=== PATIENT | male | born 1955 ===

== ENCOUNTER 2017-02-09 15:28 | Emergency (ER) | payer MEDICARE ==
[2017-02-09 15:28] VITALS: BMI 34.2
[2017-02-09] MEDS ORDERED: Sodium Chloride 0.9% 500 ML IV ONE (16:43)
[2017-02-09] MEDS ORDERED: Piperacillin/Tazobact 3.375 GM in Sodium Chloride 100 ML IVPB STA (16:45)
[2017-02-09] MEDS ORDERED: Piperacillin/Tazobact 3.375 gm 100 ML IVPB ONE (17:07)
[2017-02-09] MEDS ORDERED: Morphine 4 MG/ML VIAL ONE (17:14)
[2017-02-09 17:17] LABS: BASO # 0.1 K/uL (0.0-0.2); BASO % 0.8 % (0.0-2.0); EOS # 0.4 K/uL (0.0-0.7); EOS % 4.2 % (0.0-4.0); HEMATOCRIT 42.7 % (35.0-51.0); LYMPH # 1.5 K/uL (1.0-4.3); LYMPH % 17.1 % (20.0-40.0); MEAN CELL VOLUME 88.7 fL (80.0-94.0); MEAN CORPUSCULAR HGB CONC 33.8 g/dL (33.0-37.0); MEAN PLATELET VOLUME 8.1 fL (7.2-11.7); MONO # 0.6 K/uL (0.0-0.8); MONO % 6.6 % (0.0-10.0); RED CELL DISTRIBUTION WIDTH 14.1 % (11.5-14.5)
[2017-02-09 17:23] VITALS: O2SAT 98
[2017-02-09 17:24] LABS: RBC URINE 3 /hpf (0-3); URINE BILIRUBIN NEGATIVE (NEGATIVE); URINE BLOOD 1+ (NEGATIVE); URINE COLOR Straw (YELLOW); URINE GLUCOSE (UA) NORMAL (Normal); URINE KETONE NEGATIVE (NEGATIVE); URINE LEUKOCYTE ESTERASE NEG Leu/uL (Negative); URINE PROTEIN NEGATIVE (NEGATIVE); URINE UROBILINOGEN NORMAL mg/dL (0.2-1.0); WBC URINE < 1 /hpf (0-5)
--- NOTE | 2017-02-09 18:02 | C.PDOC ---
History Of Present Illness 61 yo male w/PMHx of HTN, CAD come in for evaluation of left lower lip pain and swelling gradually developed for past 3-4 days. Pt sts, " developed small pimple on skin under my lip when tried to squeeze it and it got worse". Pt admits, was seen by PMD 2 days ago and received Rx: Valacyclovir, Ibuprofen without improvement. Otherwise, pt denies previous hx of cold sores, fever, chills, recent illness, headache, dizziness, recent dental work, drooling, dysphagia, dyspnea, trismus, earache, vertigo, denies CP, SOB, cough, wheezing or any other active complaints. Pt denies MARCELLUS inh use. Ambulate to Ed for evaluation, appears in pain. Time Seen by Provider: 02/09/17 15:54 Chief Complaint (Nursing): Abnormal Skin Integrity History Per: Patient Onset/Duration Of Symptoms: Gradual Current Symptoms Are (Timing): Worse Past Medical History Reviewed: Historical Data, Nursing Documentation, Vital Signs Vital Signs: Last Vital Signs Temp 97.9 F 02/09/17 17:30 Pulse 68 02/09/17 17:30 Resp 16 02/09/17 17:30 BP 122/76 02/09/17 17:30 Pulse Ox 98 02/09/17 19:18 - Medical History PMH: Back Problems, CAD ([place]), Gastritis, HTN, Sleep Apnea (doesnot use CPAP machine) Denies: Hypercholesterolemia, Chronic Kidney Disease Surgical History: Coronary Stent, Endoscopy - [facility] Procedures CLOSED ENDOSCOPIC BIOPSY OF LARGE INTESTINE (12/25/14) CORONAR ARTERIOGR-2 CATH (04/08/15) ESOPHAGOGASTRODUODENOSCOPY [EGD] W/CLOSED BIOPSY (01/01/15) INSERTION OF ONE VASCULAR STENT (04/08/15) INSRT OF DRUG-ELUTING CORON ARTERY STENTS(S) (04/08/15) LEFT HEART CARDIAC CATH (04/08/15) LT HEART ANGIOCARDIOGRAM (04/08/15) PERCUTANEOUS TRANSLUMINAL CORONARY ANGIOPLASTY [PTCA] (04/08/15) PROCEDURE ON SINGLE VESSEL (04/08/15) VACCINATION NEC (04/08/15) Family History: States: [place], CAD - Social History Hx Tobacco Use: No Hx Alcohol Use: No Hx Substance Use: No - Immunization History Hx Tetanus Toxoid Vaccination: No Hx Influenza Vaccination: No Hx Pneumococcal Vaccination: No Review Of Systems Except As Marked, All Systems Reviewed And Found Negative. Constitutional: Negative for: Fever, Chills Eyes: Negative for: Vision Change, Eyelid Inflammation, Redness ENT: Positive for: Mouth Pain, Mouth Swelling (lower lip). Negative for: Ear Pain, Ear Discharge, Throat Pain, Throat Swelling Respiratory: Negative for: Cough, Shortness of Breath, Wheezing Gastrointestinal: Negative for: Nausea, Vomiting, Abdominal Pain Musculoskeletal: Negative for: Neck Pain Skin: Positive for: Lesions (lower lip). Negative for: Rash Neurological: Negative for: Weakness, Numbness, Altered Mental Status, Headache , Dizziness Physical Exam - Physical Exam Appears: Well, Non-toxic, No Acute Distress Skin: Normal Color, Warm, Dry, No Rash Eye(s): bilateral: Normal Inspection Ear(s): Bilateral: Normal Nose: Normal, No Discharge Oral Mucosa: Moist Lips: Swelling (diffuse lower lip), Lesions (small lesion noted to lower lip vermilion border, tender, covered by bloody crust. No discharges noted.) Gingiva: Normal Appearing Throat: Normal, No Erythema, No Exudate, No Drooling Neck: Normal ROM, Trachea Midline, Supple Cardiovascular: Rhythm Regular Respiratory: No Stridor, No Wheezing Gastrointestinal/Abdominal: Normal Exam, Soft, No Tenderness Back: No CVA Tenderness Extremity: Normal ROM, No Pedal Edema, No Deformity Neurological/Psych: Oriented x3, Normal Speech ED Course And Treatment - Laboratory Results Result Diagrams: 02/09/17 17:10 02/09/17 17:10 Lab Interpretation: Normal O2 Sat by Pulse Oximetry: 98 Pulse Ox Interpretation: Normal Progress Note: Pt was OBS in ED for 3 hours and remained stable. Case discused , diagnostics review with ED attending and discharge with outpt f/ u recommend at this time. On re-eval, pt is afebrile, hemodynamicaly stable. Non-toxic. Tolerate Po well in ED. Pt reports, moderate improvement n apin and swelling after ED treatment. PulseOx 100% RA. Neck: (-) meningeal sign. ENT: exam c/w lower lip lesion with surrounding diffuse lip induration, r/o superimposed infection. Lungs: CTA B/L, BS equal B/L. ABd: benign. Neurologicaly intact. Results, clinidal findings review and discussed with pt and family. Advised to F/U with [facility] in 1-2 days without fail for re- eavluation. return if any new changes. Pt and family understand and agrees with discharges. Disposition Counseled Patient/Family Regarding: Studies Performed, Diagnosis, Need For Followup, Rx Given - Disposition Referrals: Roel Hancock MD [Medical Doctor] - Disposition Time: 18:02 Condition: STABLE Additional Instructions: WARM SALTY WATER COMPRESSES TO LIP AREA 3-4 TIME DAILY FOR 5 MINUTES TAKE MEDICATION PRESCRIBED FOLLOW UP WITH PMD OR ED IN 2 DAYS WITHOUT FAIL FOR RE-EVALUATION. RETURN TO ED AT ANY TIME IF ANY WORSENING OR NEW CHANGES. Prescriptions: Clindamycin [Cleocin] 300 mg PO Q6 #28 cap oxyCODONE/Acetaminophen [Percocet 5/325 mg Tab] 1 tab PO BID #7 tab Instructions: Cellulitis (ED) Print Language: CAMEROONIAN - Clinical Impression Clinical Impression: Lip abscess
[2017-02-09 18:03] LABS: CHLORIDE 100 mmol/L (98-107); SODIUM 137 mmol/L (132-148)
[2017-02-09 18:06] LABS: ALB/GLOB RATIO 1.4 (1.0-2.1); ALKALINE PHOSPHATASE 85 U/L (38-126); ALT/SGPT 20 U/L (21-72); AST/SGOT 30 U/L (17-59); BILIRUBIN,TOTAL 2.4 mg/dL (0.2-1.3); BLOOD UREA NITROGEN 15 mg/dL (9-20); CALCIUM 9.1 mg/dl (8.6-10.4); CARBON DIOXIDE 24 mmol/L (22-30); GFR AFRICAN-AMERICAN > 60; GLUCOSE,RANDOM 98 mg/dL (75-110); TOTAL PROTEIN 7.7 g/dL (6.3-8.3)
[2017-02-09 18:26] LABS: POTASSIUM 4.1 mmol/L (3.6-5.2)
[2017-02-09] MEDS ORDERED: Bacitracin 500 Units/gm Oint Foilpak UD ONE (18:27)
[2017-02-09] MEDS ORDERED: Oxycodone/Acetaminophen 5/325 mg Tab ONE (20:03)
[2017-02-09] MEDS ORDERED: Oxycodone/Acetaminophen 5/325 mg Tab PO STA (20:03)
[2017-02-09 20:32] VITALS: BP 124/72; PULSE 72; RESP 18; TEMP 98.1
[2017-02-09] MEDS ORDERED: Sodium Chloride 0.9% 1,000 ML ONE (20:45)
== END 2017-02-09 20:33 | disposition home or self-care (01) ==
LOC: C.ER 15:28
DX: K13.0 Diseases of lips (principal)
CPT/HCPCS: 80053; 81001; 85025; 87040; 96365; 96366; 96367; 96375; 99284; J2270; J2543; J2930; J7040; J7050

== ENCOUNTER 2017-04-18 10:45 | Inpatient (IN) | payer MEDICARE ==
[2017-04-18] MEDS ORDERED: Sodium Chloride 0.9% 1,000 ML ONE (10:56)
[2017-04-18] MEDS ORDERED: Sodium Chloride 0.9% 500 ML IV ONE (11:08)
[2017-04-18 11:19] VITALS: BMI 34.4
[2017-04-18 11:38] LABS: BASO % 0.1 % (0.0-2.0); HEMOGLOBIN 15.2 g/dL (12.0-18.0); LYMPH # 1.6 K/uL (1.0-4.3); LYMPH % 13.8 % (20.0-40.0); MEAN CELL VOLUME 88.5 fL (80.0-94.0); MEAN CORPUSCULAR HEMOGLOBIN 29.4 pg (27.0-31.0); MEAN CORPUSCULAR HGB CONC 33.3 g/dL (33.0-37.0); MEAN PLATELET VOLUME 8.8 fL (7.2-11.7); MONO # 0.7 K/uL (0.0-0.8); NEUT # 9.4 K/uL (1.8-7.0); NEUT % 80.1 % (50.0-75.0); RBC 5.18 Mil/uL (4.40-5.90); RED CELL DISTRIBUTION WIDTH 14.6 % (11.5-14.5); WHITE BLOOD COUNT 11.8 K/uL (4.8-10.8)
[2017-04-18 11:54] LABS: INR 1.1; PROTHROMBIN TIME 12.9 SECONDS (9.7-12.2)
--- NOTE | 2017-04-18 11:54 | C.PDOC ---
History Of Present Illness 61 year old male BIBA for evaluation of chest pain and palpitations x 1 hour. CP radiates to his left arm; associated with mild SOB. Patient took 4 ASA at home. He has h/o HTN, [place] with stent placemrnt 2 years ago (march 2015). Patient denies cough, fever, SOB or history of arrhythmias. Ticket [employer]or [employer] Usher is Dr. Muhammad. Time Seen by Provider: 04/18/17 10:53 Chief Complaint (Nursing): Chest Pain History Per: Patient, Family ( at bedside) History/Exam Limitations: no limitations Onset/Duration Of Symptoms: Hrs Current Symptoms Are (Timing): Still Present Quality: "Pain" Associated Symptoms: denies: Other (Cough, Fever) Modifying Factors: None Exacerbating Factors: None Alleviating Factors: None Past Medical History Reviewed: Historical Data, Nursing Documentation, Vital Signs Vital Signs: Last Vital Signs Temp 97.6 F 04/19/17 15:00 Pulse 88 04/19/17 15:00 Resp 20 04/19/17 15:00 BP 95/64 L 04/19/17 15:00 Pulse Ox 96 04/19/17 15:00 - Medical History PMH: Back Problems, CAD ([place]), Gastritis, HTN, Sleep Apnea (doesnot use CPAP machine) Surgical History: Coronary Stent, Endoscopy - [facility] Procedures CLOSED ENDOSCOPIC BIOPSY OF LARGE INTESTINE (12/25/14) CORONAR ARTERIOGR-2 CATH (04/08/15) ESOPHAGOGASTRODUODENOSCOPY [EGD] W/CLOSED BIOPSY (01/01/15) INSERTION OF ONE VASCULAR STENT (04/08/15) INSRT OF DRUG-ELUTING CORON ARTERY STENTS(S) (04/08/15) LEFT HEART CARDIAC CATH (04/08/15) LT HEART ANGIOCARDIOGRAM (04/08/15) PERCUTANEOUS TRANSLUMINAL CORONARY ANGIOPLASTY [PTCA] (04/08/15) PROCEDURE ON SINGLE VESSEL (04/08/15) VACCINATION NEC (04/08/15) Family History: States: [place], CAD - Social History Hx Tobacco Use: No Hx Alcohol Use: Yes Hx Substance Use: No - Immunization History Hx Tetanus Toxoid Vaccination: No Hx Influenza Vaccination: No Hx Pneumococcal Vaccination: No Review Of Systems Except As Marked, All Systems Reviewed And Found Negative. Constitutional: Negative for: Fever, Chills Cardiovascular: Positive for: Chest Pain, Palpitations Respiratory: Negative for: Cough, Shortness of Breath Gastrointestinal: Negative for: Nausea, Vomiting Musculoskeletal: Positive for: Arm Pain (Left, radiating from chest) Skin: Negative for: Rash Physical Exam - Physical Exam Appears: Non-toxic, Other (Uncomfortable appearing, speaking in full sentences) Skin: Normal Color, Warm, Dry, No Rash Head: Normacephalic Oral Mucosa: Moist Chest: No Tenderness Cardiovascular: Rhythm Irregular (Tachycardic and irregularly irregular) Respiratory: Normal Breath Sounds, No Rales, No Rhonchi, No Wheezing Gastrointestinal/Abdominal: Normal Exam, Bowel Sounds, Soft, No Tenderness Extremity: Normal ROM, No Pedal Edema, No Calf Tenderness Pulses: Left Dorsalis Pedis: Normal, Right Dorsalis Pedis: Normal Neurological/Psych: Oriented x3 ED Course And Treatment - Laboratory Results Result Diagrams: 04/19/17 07:16 04/19/17 07:16 ECG: Interpreted By Me, Viewed By Me (atrial fibrillation 163 bpm RVR, left axis deviatiob, no acute ST/T wave changes) ECG Rhythm: Atrial Fibrillation (With RVR) ECG Interpretation: Abnormal Rate From EC O2 Sat by Pulse Oximetry: 100 (Room air) Pulse Ox Interpretation: Normal - Radiology CXR: Interpreted by Me, Viewed By Me CXR Interpretation: Yes: No Acute Disease. No: Infiltrates Progress Note: Blood work, EKG, CXR ordered and reviewed. Patient given IV Cardizem 20mg x 2, and PO cardizem 30mg, PO tylenol for pain. Rate control achieved after IV and PO Cardizem, and chest pain also resolved when heart rate controlled . Patient given SC Lovenox due to new onset atrial fibrillation. Reevaluation Time: 13:00 Reassessment Condition: Improved (Patient resting comfortably, no current chest pain or palpitations.) - Physician Consult Information Physician Contacted: Pop Cao Outcome Of Conversation: Agrees with admission for new onset A fib with RVR, chest pain, r/o ACS with Dr. Muhammad for cardiology. Critical Care Time - Critical Care Note Total Time (in mins): 35 Documented critical care: time excludes all time spent performing seperately billable procedures. Disposition - Disposition Disposition: HOSPITALIZED Disposition Time: 13:16 Condition: STABLE - Clinical Impression Clinical Impression: New onset atrial fibrillation, Atrial fibrillation with RVR, Chest pain - Scribe Statement The provider has reviewed the documentation as recorded by the Scribe Jl Pope All medical record entries made by the Scribe were at my direction and personally dictated by me. I have reviewed the chart and agree that the record accurately reflects my personal performance of the history, physical exam, medical decision making, and the department course for this patient. I have also personally directed, reviewed, and agree with the discharge instructions and disposition. Decision To Admit - Pt Status Changed To: Hospital Disposition Of: Inpatient - Admit Certification Admit to Inpatient:: After my assessment, the patient will require hospitalization for at least two midnights. This is because of the severity of symptoms shown, intensity of services needed, and/or the medical risk in this patient being treated as an outpatient. - InPatient: Physician Admission Certification: I certify that this patient requires 2 or more midnights of care for the following reason:: see notes - . Bed Request Type: Telemetry Admitting Physician: Pop Cao Patient Diagnosis: Chest pain, New onset atrial fibrillation, Atrial fibrillation with RVR
[2017-04-18 12:01] LABS: ALBUMIN 4.5 g/dL (3.5-5.0)
[2017-04-18 12:04] LABS: AST/SGOT 31 U/L (17-59); GFR AFRICAN-AMERICAN > 60; GFR NON-AFRICAN AMERICAN > 60
[2017-04-18 12:05] LABS: ALB/GLOB RATIO 1.2 (1.0-2.1); ALT/SGPT 42 U/L (21-72); BLOOD UREA NITROGEN 14 mg/dL (9-20); CALCIUM 9.2 mg/dl (8.6-10.4)
[2017-04-18 12:13] LABS: B-TYPE NATRIURETIC PEPTIDE 57.8 pg/mL (0-900); CK-MB 1.09 ng/mL (0.0-3.38)
[2017-04-18] MEDS ORDERED: Enoxaparin 120 mg Syringe SC STA (13:11)
[2017-04-18] MEDS ORDERED: Enoxaparin 30 mg Syringe ONE (13:27)
[2017-04-18] MEDS ORDERED: Enoxaparin 80 mg Syringe ONE (13:27)
--- NOTE | 2017-04-18 15:23 | RAD ---
PROCEDURE: CHEST RADIOGRAPH, 1 VIEW HISTORY: cp COMPARISON: 04/07/2015 FINDINGS: LUNGS: Clear. PLEURA: No pneumothorax or pleural fluid seen. CARDIOVASCULAR: Normal. OSSEOUS STRUCTURES: No significant abnormalities. VISUALIZED UPPER ABDOMEN: Normal. OTHER FINDINGS: None. IMPRESSION: No active disease.
--- NOTE | 2017-04-18 15:36 | CP.PCM.HP ---
Past Patient History - Infectious Disease Hx of Infectious Diseases: None - Past Medical History & Family History Past Medical History?: No - Past Social History Smoking Status: Never Smoked - CARDIAC Hx Hypertension: Yes - PULMONARY Hx Sleep Apnea: Yes (doesnot use CPAP machine) - NEUROLOGICAL Hx Neurological Disorder: No - HEENT Hx HEENT Problems: Yes (Sinus Surgery) Hx Sinusitis: Yes - RENAL Hx Chronic Kidney Disease: No - ENDOCRINE/METABOLIC Hx Diabetes Mellitus Type 2: No - HEMATOLOGICAL/ONCOLOGICAL Hx Blood Disorders: No - INTEGUMENTARY Hx Dermatological Problems: No - MUSCULOSKELETAL/RHEUMATOLOGICAL Hx Musculoskeletal Disorders: Yes - GASTROINTESTINAL Hx Gastritis: Yes - GENITOURINARY/GYNECOLOGICAL Hx Genitourinary Disorders: No - PSYCHIATRIC Hx Substance Use: No - SURGICAL HISTORY Hx Coronary Stent: Yes - ANESTHESIA Hx Anesthesia: Yes Hx Anesthesia Reactions: No Hx Malignant Hyperthermia: No Meds Allergies/Adverse Reactions: Allergies Allergy/AdvReac Type Severity Reaction Status Date / Time No Known Allergies Allergy Verified 02/09/17 15:38 Results - Vital Signs Recent Vital Signs: Last Vital Signs Temp 98.0 F 04/18/17 14:40 Pulse 90 04/18/17 14:40 Resp 18 04/18/17 14:40 BP 115/78 04/18/17 14:40 Pulse Ox 98 04/18/17 14:40 - Labs Result Diagrams: 04/18/17 11:24 04/18/17 11:24 Assessment & Plan - Assessment and Plan (Free Text) Plan: repeat romix [address]kohan lagunas same coreg lisnorpil as pe rcardio
[2017-04-18] MEDS ORDERED: Enoxaparin 30 mg Syringe IVP ONE (15:37)
[2017-04-18] MEDS ORDERED: Enoxaparin 30 mg Syringe SC ONE (16:15)
[2017-04-18 17:22] LABS: BASO % 0.1 % (0.0-2.0); HEMOGLOBIN 15.4 g/dL (12.0-18.0); LYMPH # 1.5 K/uL (1.0-4.3); LYMPH % 12.1 % (20.0-40.0); MEAN CELL VOLUME 88.3 fL (80.0-94.0); MEAN CORPUSCULAR HEMOGLOBIN 29.4 pg (27.0-31.0); MEAN CORPUSCULAR HGB CONC 33.3 g/dL (33.0-37.0); MEAN PLATELET VOLUME 8.7 fL (7.2-11.7); MONO # 0.6 K/uL (0.0-0.8); MONO % 4.9 % (0.0-10.0); NEUT # 10.6 K/uL (1.8-7.0); NEUT % 82.9 % (50.0-75.0); RBC 5.22 Mil/uL (4.40-5.90); RED CELL DISTRIBUTION WIDTH 14.9 % (11.5-14.5); WHITE BLOOD COUNT 12.8 K/uL (4.8-10.8)
[2017-04-18 17:43] LABS: BLOOD UREA NITROGEN 12 mg/dL (9-20); GFR AFRICAN-AMERICAN > 60; GFR NON-AFRICAN AMERICAN > 60
[2017-04-18 17:44] LABS: CALCIUM 9.1 mg/dl (8.6-10.4)
[2017-04-18 17:56] LABS: CK-MB 2.44 ng/mL (0.0-3.38)
[2017-04-18] MEDS ORDERED: Oxycodone/Acetaminophen 5/325 mg Tab PO PRN (18:17)
[2017-04-19 01:39] LABS: CK-MB 1.78 ng/mL (0.0-3.38)
--- NOTE | 2017-04-19 02:33 | CP.PCM.PN ---
Subjective - Date & Time of Evaluation Date of Evaluation: 04/19/17 Time of Evaluation: 02:20 - Subjective Subjective: House resident paged due to increasing troponin level. Patient's was comfortable and in no acute distress. Denied chest pain or SOB. Vitals stable. Patient with history of Afib and NSTEMI in past. Was sent to [facility] and had stent placed, was 100% occluded in circumflex. Trop #1 negative, Trop #2 [phone] , Trop #[phone]. EKG showed A fib with hr [address] Dawkins, cardiology consulted. Lovenox 112mg SC BID therapeutic dose. Patient was given therapeutic dose in the ED around 1:00PM. He was given another dose now at 2:30 AM. Will repeat DA with am labs and closely monitor. Dayna Thomas PGY 1 Objective - Vital Signs/Intake and Output Vital Signs (last 24 hours): Temp Pulse Resp BP Pulse Ox 98.7 F 80 20 118/77 97 04/18/17 23:40 04/18/17 23:40 04/18/17 23:40 04/19/17 01:00 04/18/17 23:40 Intake and Output: 04/18/17 04/19/17 18:59 06:59 Intake Total 480 Balance 480 - Medications Medications: Current Medications Aspirin (Aspirin Chewable) 81 mg PO DAILY [facility] Last Admin: 04/18/17 16:41 Dose: 81 mg Aspirin (Ecotrin) 81 mg PO DAILY [facility] Clopidogrel Bisulfate (Plavix) 75 mg PO DAILY [facility] Diltiazem HCl (Cardizem) 60 mg PO Q6 [facility] Last Admin: 04/19/17 01:01 Dose: 60 mg Enoxaparin Sodium (Lovenox) 112 mg SC BID [facility] Losartan Potassium (Cozaar) 25 mg PO DAILY [facility] Metoprolol Tartrate (Lopressor) 25 mg PO DAILY [facility] Oxycodone/Acetaminophen (Percocet 5/325 Mg Tab) 1 tab PO BID PRN PRN Reason: Pain, moderate (4-7) Stop: 04/21/17 18:31 Pantoprazole Sodium (Protonix Ec Tab) 40 mg PO DAILY [facility] Rosuvastatin Calcium (Crestor) 5 mg PO HS [facility] Tramadol HCl (Ultram) 50 mg PO Q12 [facility] Last Admin: 04/18/17 22:10 Dose: 50 mg - Labs Labs: 04/18/17 17:14 04/18/17 17:14 PT 12.9 SECONDS (9.7-12.2) H 04/18/17 11:24 INR 1.1 04/18/17 11:24 APTT 28 SECONDS (21-34) 04/18/17 11:24
[2017-04-19] MEDS: Enoxaparin 120 mg Syringe SC SCH ×2 (02:43→13:41)
[2017-04-19 07:37] LABS: BASO % 0.1 % (0.0-2.0); HEMOGLOBIN 15.3 g/dL (12.0-18.0); LYMPH # 1.6 K/uL (1.0-4.3); LYMPH % 15.2 % (20.0-40.0); MEAN CELL VOLUME 88.1 fL (80.0-94.0); MEAN CORPUSCULAR HEMOGLOBIN 29.8 pg (27.0-31.0); MEAN CORPUSCULAR HGB CONC 33.8 g/dL (33.0-37.0); MEAN PLATELET VOLUME 8.4 fL (7.2-11.7); MONO # 0.5 K/uL (0.0-0.8); MONO % 4.7 % (0.0-10.0); NEUT # 8.4 K/uL (1.8-7.0); RBC 5.12 Mil/uL (4.40-5.90); RED CELL DISTRIBUTION WIDTH 14.4 % (11.5-14.5); WHITE BLOOD COUNT 10.5 K/uL (4.8-10.8)
[2017-04-19 07:49] LABS: ALBUMIN 3.9 g/dL (3.5-5.0)
[2017-04-19 07:52] LABS: ALB/GLOB RATIO 1.2 (1.0-2.1); AST/SGOT 26 U/L (17-59); GFR AFRICAN-AMERICAN > 60; GFR NON-AFRICAN AMERICAN > 60
[2017-04-19 07:53] LABS: ALT/SGPT 44 U/L (21-72); BLOOD UREA NITROGEN 15 mg/dL (9-20); MAGNESIUM 1.9 mg/dL (1.6-2.3)
[2017-04-19 08:03] LABS: CK-MB 1.44 ng/mL (0.0-3.38)
--- NOTE | 2017-04-19 09:52 | CP.PCM.PN ---
Subjective - Date & Time of Evaluation Date of Evaluation: 04/19/17 Time of Evaluation: 12:20 - Subjective Subjective: clinically same Objective - Vital Signs/Intake and Output Vital Signs (last 24 hours): Temp Pulse Resp BP Pulse Ox 98 F 75 20 118/83 97 04/19/17 04:00 04/19/17 04:00 04/19/17 04:00 04/19/17 06:24 04/18/17 23:40 Intake and Output: 04/19/17 04/19/17 06:59 18:59 Intake Total 680 Output Total 600 Balance 80 - Medications Medications: Current Medications Aspirin (Ecotrin) 81 mg PO DAILY [facility] Clopidogrel Bisulfate (Plavix) 75 mg PO DAILY [facility] Diltiazem HCl (Cardizem) 60 mg PO Q6 [facility] Last Admin: 04/19/17 06:27 Dose: 60 mg Enoxaparin Sodium (Lovenox) 112 mg SC Q12H [facility] Last Admin: 04/19/17 02:43 Dose: 112 mg Losartan Potassium (Cozaar) 25 mg PO DAILY [facility] Metoprolol Tartrate (Lopressor) 25 mg PO DAILY [facility] Oxycodone/Acetaminophen (Percocet 5/325 Mg Tab) 1 tab PO BID PRN PRN Reason: Pain, moderate (4-7) Stop: 04/21/17 18:31 Last Admin: 04/19/17 06:30 Dose: 1 tab Pantoprazole Sodium (Protonix Ec Tab) 40 mg PO DAILY [facility] Rosuvastatin Calcium (Crestor) 5 mg PO HS [facility] Tramadol HCl (Ultram) 50 mg PO Q12 [facility] Last Admin: 04/18/17 22:10 Dose: 50 mg - Labs Labs: 04/19/17 07:16 04/19/17 07:16 PT 12.9 SECONDS (9.7-12.2) H 04/18/17 11:24 INR 1.1 04/18/17 11:24 APTT 28 SECONDS (21-34) 04/18/17 11:24 - Constitutional Appears: Well - Head Exam Head Exam: ATRAUMATIC, NORMAL INSPECTION, NORMOCEPHALIC - Eye Exam Eye Exam: EOMI, Normal appearance, PERRL Pupil Exam: NORMAL ACCOMODATION, PERRL - ENT Exam ENT Exam: Mucous Membranes Moist, Normal Exam - Neck Exam Neck Exam: Full ROM, Normal Inspection. absent: Lymphadenopathy - Respiratory Exam Respiratory Exam: Decreased Breath Sounds - Cardiovascular Exam Cardiovascular Exam: REGULAR RHYTHM, +S1, +S2 - GI/Abdominal Exam GI & Abdominal Exam: Soft, Diminished Bowel Sounds - Rectal Exam Rectal Exam: Deferred
[2017-04-19] MEDS ORDERED: Enoxaparin 120 mg Syringe SC SCH (10:00)
[2017-04-19] MEDS ORDERED: Enoxaparin 100 mg Syringe SC SCH (10:00)
--- NOTE | 2017-04-19 10:05 | CARD ---
APPROVED REPORT EKG Measurement Heart [id number] <Conclusion> Atrial fibrillation with rapid ventricular response Abnormal ECG
[2017-04-19] MEDS: Pantoprazole 40 mg EC Tab PO SCH (10:10)
--- NOTE | 2017-04-19 10:58 | CARD ---
APPROVED REPORT EXAM: Two-dimensional and M-mode echocardiogram with Doppler and color Doppler. Other Information Quality : GoodRhythm : NSR INDICATION Atrial Fibrillation CORONARY STANT RISK FACTORS Hypertension 2D DIMENSIONS Aortic Root (2D)3.1 (2.0-3.7cm)LVDd3.7 (3.9-5.9cm) PWd1.0 (0.7-1.1cm)IVSs3.0 (0.8-1.2cm) LVDs2.1 (2.5-4.0cm)FS (%) 41.9 % LVEF (%)73.7 (>50%) M-Mode DIMENSIONS Left Atrium (MM)3.39 (2.5-4.0cm)IVSd1.62 (0.7-1.1cm) Aortic Root3.25 (2.2-3.7cm)LVDd4.65 (4.0-5.6cm) Aortic Cusp Exc.2.25 (1.5-2.0cm)PWd1.11 (0.7-1.1cm) FS (%) 27 %LVDs3.39 (2.0-3.8cm) LVEF (%)53 (>50%) Mitral Valve MV E Mejddiwv855.2cm/sE/A ratio0.0 TDI E/Lateral E'0.0E/Medial E'0.0 Tricuspid Valve TR Peak [id number]/[id number] Peak [id number] LEFT VENTRICLE The left ventricle is normal size. There is normal left ventricular wall thickness. The left ventricular function is normal. The left ventricular ejection fraction is within the normal range. No regional wall motion abnormalities noted. The left ventricular diastolic function is normal. No left ventricle thrombus noted on this study. There is no ventricular septal defect visualized. There is no left ventricular aneurysm. There is no mass noted in the left ventricle. RIGHT VENTRICLE The right ventricle is normal size. There is normal right ventricular wall thickness. The right ventricular systolic function is normal. ATRIA The left atrium size is normal. The right atrium size is normal. The interatrial septum is intact with no evidence for an atrial septal defect. AORTIC VALVE The aortic valve is normal in structure and function. No aortic regurgitation is present. There is no aortic valvular stenosis. There is no aortic valvular vegetation. MITRAL VALVE The mitral valve is normal in structure and function. There is no evidence of mitral valve prolapse. There is no mitral valve stenosis. There is no mitral valve regurgitation noted. TRICUSPID VALVE The tricuspid valve is normal in structure and function. There is mild tricuspid regurgitation. Right ventricular systolic pressure is estimated at less than 30 mmHg. There is no tricuspid valve prolapse or vegetation. There is no tricuspid valve stenosis. PULMONIC VALVE The pulmonary valve is normal in structure and function. There is no pulmonic valvular regurgitation. There is no pulmonic valvular stenosis. GREAT VESSELS The aortic root is normal in size. The ascending aorta is normal in size. The pulmonary artery is normal. The IVC is normal in size and collapses >50% with inspiration. PERICARDIAL EFFUSION The pericardium appears normal. There is no pleural effusion. <Conclusion> The left ventricular function is normal. The left ventricular ejection fraction is within the normal range. No regional wall motion abnormalities noted.
--- NOTE | 2017-04-19 11:56 | CP.PCM.CON ---
History of Present Illness - History of Present Illness History of Present Illness: Consult Note for Dr. Dawkins Reason for Consult: Palpitations 61 y/o M with PMH of HTN, GERD, GA, CAD with stent placement, and chronic back pain presented initially to the ED on 04/18/2017 for palpitations and chest pain. Pt arrived to the ED for chest pain that started 1 hour prior to arrival. Pt states the pain is radiating down his left arm. Pain was described as a pressure like pain. No medication was taken at home for pain. EKG on arrival to the ED showed A-fib with RVR with a rate of 160. Pt was also found to have positive troponins, which elevated on the second set, and decreased on the third. Overnight, pt was started on cardizem to help control rapid heart rate. Today, patient is doing well with no complaints at chest pain or shortness of breath at this time. PMH: HTN, GERD, GA, CAD, and chronic back pain PSH: Cardiac stent placement, Hernia Repair FMH: HTN, CAD Social Hx: Scooby tobacco or illicit drug use. Occasional alcohol use Allergies: NKDA Medication: See MAR Review of Systems - Constitutional Constitutional: absent: Fatigue, Fever - EENT Eyes: absent: Blurred Vision, Change in Vision - Cardiovascular Cardiovascular: Chest Pain, Palpitations - Respiratory Respiratory: absent: Cough, Dyspnea - Gastrointestinal Gastrointestinal: Abdominal Pain. absent: Diarrhea, Vomiting - Genitourinary Genitourinary: absent: Dysuria, Hematuria - Neurological Neurological: absent: Numbness, Tingling Past Patient History - Infectious Disease Hx of Infectious Diseases: None - Past Medical History & Family History Past Medical History?: Yes - Past Social History Smoking Status: Never Smoked - CARDIAC Hx Cardiac Disorders: Yes Hx Angina: Yes Hx Heart Attack: Yes Hx Hypercholesterolemia: Yes Hx Hypertension: Yes - PULMONARY Hx Respiratory Disorders: Yes Hx Sleep Apnea: Yes (doesnot use CPAP machine) - NEUROLOGICAL Hx Neurological Disorder: No - HEENT Hx HEENT Problems: Yes (Sinus Surgery) Hx Sinusitis: Yes Other/Comment: wear reading eyeglasses - RENAL Hx Chronic Kidney Disease: No - ENDOCRINE/METABOLIC Hx Endocrine Disorders: No - HEMATOLOGICAL/ONCOLOGICAL Hx Blood Disorders: No - INTEGUMENTARY Hx Dermatological Problems: No - MUSCULOSKELETAL/RHEUMATOLOGICAL Hx Falls: No - GASTROINTESTINAL Hx Gastrointestinal Disorders: Yes Hx Gastritis: Yes - GENITOURINARY/GYNECOLOGICAL Hx Genitourinary Disorders: No - PSYCHIATRIC Hx Substance Use: No - SURGICAL HISTORY Hx Surgeries: Yes Hx Coronary Stent: Yes (2 yrs ago) Hx Herniorrhaphy: Yes - ANESTHESIA Hx Anesthesia: Yes Hx Anesthesia Reactions: No Hx Malignant Hyperthermia: No Has any member of the family had a problem w/ anesthesia?: No Meds Allergies/Adverse Reactions: Allergies Allergy/AdvReac Type Severity Reaction Status Date / Time No Known Allergies Allergy Verified 02/09/17 15:38 - Medications Medications: Current Medications Aspirin (Ecotrin) 81 mg PO DAILY [facility] Last Admin: 04/19/17 10:12 Dose: 81 mg Clopidogrel Bisulfate (Plavix) 75 mg PO DAILY [facility] Last Admin: 04/19/17 10:10 Dose: 75 mg Diltiazem HCl (Cardizem) 60 mg PO Q6 [facility] Last Admin: 04/19/17 06:27 Dose: 60 mg Enoxaparin Sodium (Lovenox) 112 mg SC Q12H [facility] Last Admin: 04/19/17 02:43 Dose: 112 mg Losartan Potassium (Cozaar) 25 mg PO DAILY [facility] Last Admin: 04/19/17 10:10 Dose: 25 mg Metoprolol Tartrate (Lopressor) 25 mg PO DAILY [facility] Last Admin: 04/19/17 10:10 Dose: 25 mg Oxycodone/Acetaminophen (Percocet 5/325 Mg Tab) 1 tab PO BID PRN PRN Reason: Pain, moderate (4-7) Stop: 04/21/17 18:31 Last Admin: 04/19/17 06:30 Dose: 1 tab Pantoprazole Sodium (Protonix Ec Tab) 40 mg PO DAILY [facility] Last Admin: 04/19/17 10:10 Dose: 40 mg Rosuvastatin Calcium (Crestor) 5 mg PO HS [facility] Tramadol HCl (Ultram) 50 mg PO Q12 [facility] Last Admin: 04/19/17 10:10 Dose: 50 mg Physical Exam - Constitutional Appears: Well, No Acute Distress - Head Exam Head Exam: ATRAUMATIC, NORMAL INSPECTION, NORMOCEPHALIC - ENT Exam ENT Exam: Mucous Membranes Moist - Respiratory Exam Respiratory Exam: Clear to Auscultation Bilateral, NORMAL BREATHING PATTERN - Cardiovascular Exam Cardiovascular Exam: RRR, +S1, +S2 - GI/Abdominal Exam GI & Abdominal Exam: Normal Bowel Sounds, Soft. absent: Tenderness - Extremities Exam Extremities exam: Negative for: calf tenderness, pedal edema - Neurological Exam Neurological exam: Alert, Oriented x3 - Psychiatric Exam Psychiatric exam: Normal Affect, Normal Mood - Skin Skin Exam: Intact, Normal Color, Warm Results - Vital Signs Recent Vital Signs: Last Vital Signs Temp 98.2 F 04/19/17 07:45 Pulse 109 H 04/19/17 07:45 Resp 20 04/19/17 07:45 BP 110/65 04/19/17 10:10 Pulse Ox 96 04/19/17 07:45 - Labs Result Diagrams: 04/19/17 07:16 04/19/17 07:16 Labs: Laboratory Results - last 24 hr 04/18/17 04/18/17 04/19/17 17:14 17:14 01:14 WBC 12.8 H RBC 5.22 Hgb 15.4 Hct 46.1 MCV 88.3 MCH 29.4 MCHC 33.3 RDW 14.9 H Plt Count 165 MPV 8.7 Neut % (Auto) 82.9 H Lymph % (Auto) 12.1 L [place] % (Auto) 4.9 Eos % (Auto) 0.0 Baso % (Auto) 0.1 Neut # 10.6 H Lymph # 1.5 [place] # 0.6 Eos # 0.0 Baso # 0.0 Sodium 139 Potassium 4.0 Chloride 104 Carbon Dioxide 20 L Anion Gap 19 BUN 12 Creatinine 0.8 Est GFR ( Amer) > 60 Est GFR (Non-Af Amer) > 60 POC Glucose (mg/dL) Random Glucose 121 H Calcium 9.1 Phosphorus Magnesium Total Bilirubin AST ALT Alkaline Phosphatase Total Creatine Kinase 98 55 CK-MB (Mass) 2.44 1.78 Troponin I, Quant 0.1320 H* 0.2300 H* Total Protein Albumin Globulin Albumin/Globulin Ratio TSH 3rd Generation 04/19/17 04/19/17 04/19/17 06:51 07:16 07:16 WBC 10.5 RBC 5.12 Hgb 15.3 Hct 45.2 MCV 88.1 MCH 29.8 MCHC 33.8 RDW 14.4 Plt Count 163 MPV 8.4 Neut % (Auto) 80.0 H Lymph % (Auto) 15.2 L [place] % (Auto) 4.7 Eos % (Auto) 0.0 Baso % (Auto) 0.1 Neut # 8.4 H Lymph # 1.6 [place] # 0.5 Eos # 0.0 Baso # 0.0 Sodium 136 Potassium 3.9 Chloride 101 Carbon Dioxide 22 Anion Gap 17 BUN 15 Creatinine 0.8 Est GFR ( Amer) > 60 Est GFR (Non-Af Amer) > 60 POC Glucose (mg/dL) 118 H Random Glucose 128 H Calcium 9.0 Phosphorus 3.4 Magnesium 1.9 Total Bilirubin 1.7 H AST 26 ALT 44 Alkaline Phosphatase 82 Total Creatine Kinase 58 CK-MB (Mass) 1.44 Troponin I, Quant 0.1530 H* Total Protein 7.2 Albumin 3.9 Globulin 3.2 Albumin/Globulin Ratio 1.2 TSH 3rd Generation 1.13 04/19/17 11:24 WBC RBC Hgb Hct MCV MCH MCHC RDW Plt Count MPV Neut % (Auto) Lymph % (Auto) [place] % (Auto) Eos % (Auto) Baso % (Auto) Neut # Lymph # [place] # Eos # Baso # Sodium Potassium Chloride Carbon Dioxide Anion Gap BUN Creatinine Est GFR ( Amer) Est GFR (Non-Af Amer) POC Glucose (mg/dL) 225 H Random Glucose Calcium Phosphorus Magnesium Total Bilirubin AST ALT Alkaline Phosphatase Total Creatine Kinase CK-MB (Mass) Troponin I, Quant Total Protein Albumin Globulin Albumin/Globulin Ratio TSH 3rd Generation Assessment & Plan (1) Chest pain Assessment and Plan: Echocardiogram shows normal EF, no regional wall abnormalities, and normal LV function Troponins elevated, but downtrending at this time Pt will undergo cardiac catheterization today by Dr. Hazel Continue current medical regimen and will continue to follow Status: Acute
--- NOTE | 2017-04-19 22:48 | CP.PCM.CON ---
History of Present Illness - History of Present Illness History of Present Illness: Patient seen and evaluated Scheduled for cath tomorrow Past Patient History - Infectious Disease Hx of Infectious Diseases: None - Past Medical History & Family History Past Medical History?: Yes - Past Social History Smoking Status: Never Smoked - CARDIAC Hx Hypertension: Yes - PULMONARY Hx Sleep Apnea: Yes (doesnot use CPAP machine) - NEUROLOGICAL Hx Neurological Disorder: No - HEENT Hx HEENT Problems: Yes (Sinus Surgery) Hx Sinusitis: Yes Other/Comment: wear reading eyeglasses - RENAL Hx Chronic Kidney Disease: No - ENDOCRINE/METABOLIC Hx Endocrine Disorders: No - HEMATOLOGICAL/ONCOLOGICAL Hx Blood Disorders: No - INTEGUMENTARY Hx Dermatological Problems: No - MUSCULOSKELETAL/RHEUMATOLOGICAL Hx Falls: No - GASTROINTESTINAL Hx Gastritis: Yes - GENITOURINARY/GYNECOLOGICAL Hx Genitourinary Disorders: No - PSYCHIATRIC Hx Substance Use: No - SURGICAL HISTORY Hx Coronary Stent: Yes - ANESTHESIA Hx Anesthesia: Yes Hx Anesthesia Reactions: No Hx Malignant Hyperthermia: No Has any member of the family had a problem w/ anesthesia?: No Meds Allergies/Adverse Reactions: Allergies Allergy/AdvReac Type Severity Reaction Status Date / Time No Known Allergies Allergy Verified 02/09/17 15:38 - Medications Medications: Current Medications Aspirin (Ecotrin) 81 mg PO DAILY [facility] Last Admin: 04/19/17 10:12 Dose: 81 mg Clopidogrel Bisulfate (Plavix) 75 mg PO DAILY [facility] Last Admin: 04/19/17 10:10 Dose: 75 mg Diltiazem HCl (Cardizem) 60 mg PO Q6 [facility] Last Admin: 04/19/17 19:14 Dose: 60 mg Enoxaparin Sodium (Lovenox) 112 mg SC Q12H [facility] Last Admin: 04/19/17 13:41 Dose: 112 mg Losartan Potassium (Cozaar) 25 mg PO DAILY [facility] Last Admin: 04/19/17 10:10 Dose: 25 mg Metoprolol Tartrate (Lopressor) 25 mg PO DAILY [facility] Last Admin: 04/19/17 10:10 Dose: 25 mg Oxycodone/Acetaminophen (Percocet 5/325 Mg Tab) 1 tab PO BID PRN PRN Reason: Pain, moderate (4-7) Stop: 04/21/17 18:31 Last Admin: 04/19/17 06:30 Dose: 1 tab Pantoprazole Sodium (Protonix Ec Tab) 40 mg PO DAILY [facility] Last Admin: 04/19/17 10:10 Dose: 40 mg Rosuvastatin Calcium (Crestor) 5 mg PO HS [facility] Tramadol HCl (Ultram) 50 mg PO Q12 [facility] Last Admin: 04/19/17 10:10 Dose: 50 mg Results - Vital Signs Recent Vital Signs: Last Vital Signs Temp 97.6 F 04/19/17 15:00 Pulse 125 H 04/19/17 19:00 Resp 20 04/19/17 19:00 BP 110/75 04/19/17 19:00 Pulse Ox 100 04/19/17 18:48 - Labs Result Diagrams: 04/19/17 07:16 04/19/17 07:16 Labs: Laboratory Results - last 24 hr 04/19/17 04/19/17 04/19/17 01:14 06:51 07:16 WBC RBC Hgb Hct MCV MCH MCHC RDW Plt Count MPV Neut % (Auto) Lymph % (Auto) [place] % (Auto) Eos % (Auto) Baso % (Auto) Neut # Lymph # [place] # Eos # Baso # Sodium 136 Potassium 3.9 Chloride 101 Carbon Dioxide 22 Anion Gap 17 BUN 15 Creatinine 0.8 Est GFR ( Amer) > 60 Est GFR (Non-Af Amer) > 60 POC Glucose (mg/dL) 118 H Random Glucose 128 H Calcium 9.0 Phosphorus 3.4 Magnesium 1.9 Total Bilirubin 1.7 H AST 26 ALT 44 Alkaline Phosphatase 82 Total Creatine Kinase 55 58 CK-MB (Mass) 1.78 1.44 Troponin I, Quant 0.2300 H* 0.1530 H* Total Protein 7.2 Albumin 3.9 Globulin 3.2 Albumin/Globulin Ratio 1.2 TSH 3rd Generation 1.13 04/19/17 04/19/17 04/19/17 07:16 11:24 16:27 WBC 10.5 RBC 5.12 Hgb 15.3 Hct 45.2 MCV 88.1 MCH 29.8 MCHC 33.8 RDW 14.4 Plt Count 163 MPV 8.4 Neut % (Auto) 80.0 H Lymph % (Auto) 15.2 L [place] % (Auto) 4.7 Eos % (Auto) 0.0 Baso % (Auto) 0.1 Neut # 8.4 H Lymph # 1.6 [place] # 0.5 Eos # 0.0 Baso # 0.0 Sodium Potassium Chloride Carbon Dioxide Anion Gap BUN Creatinine Est GFR ( Amer) Est GFR (Non-Af Amer) POC Glucose (mg/dL) 225 H 114 H Random Glucose Calcium Phosphorus Magnesium Total Bilirubin AST ALT Alkaline Phosphatase Total Creatine Kinase CK-MB (Mass) Troponin I, Quant Total Protein Albumin Globulin Albumin/Globulin Ratio TSH 3rd Generation 04/19/17 21:33 WBC RBC Hgb Hct MCV MCH MCHC RDW Plt Count MPV Neut % (Auto) Lymph % (Auto) [place] % (Auto) Eos % (Auto) Baso % (Auto) Neut # Lymph # [place] # Eos # Baso # Sodium Potassium Chloride Carbon Dioxide Anion Gap BUN Creatinine Est GFR ( Amer) Est GFR (Non-Af Amer) POC Glucose (mg/dL) 141 H Random Glucose Calcium Phosphorus Magnesium Total Bilirubin AST ALT Alkaline Phosphatase Total Creatine Kinase CK-MB (Mass) Troponin I, Quant Total Protein Albumin Globulin Albumin/Globulin Ratio TSH 3rd Generation
[2017-04-20] MEDS: Enoxaparin 120 mg Syringe SC SCH (02:37)
[2017-04-20 07:09] LABS: BASO % 0.3 % (0.0-2.0); HEMOGLOBIN 16.1 g/dL (12.0-18.0); LYMPH # 1.8 K/uL (1.0-4.3); LYMPH % 15.6 % (20.0-40.0); MEAN CELL VOLUME 88.2 fL (80.0-94.0); MEAN CORPUSCULAR HEMOGLOBIN 29.6 pg (27.0-31.0); MEAN CORPUSCULAR HGB CONC 33.6 g/dL (33.0-37.0); MEAN PLATELET VOLUME 8.7 fL (7.2-11.7); MONO # 1.1 K/uL (0.0-0.8); MONO % 9.7 % (0.0-10.0); NEUT # 8.3 K/uL (1.8-7.0); NEUT % 74.4 % (50.0-75.0); RBC 5.42 Mil/uL (4.40-5.90); RED CELL DISTRIBUTION WIDTH 14.7 % (11.5-14.5); WHITE BLOOD COUNT 11.2 K/uL (4.8-10.8)
[2017-04-20 07:13] LABS: INR 1.3; PROTHROMBIN TIME 14.6 SECONDS (9.7-12.2)
[2017-04-20 07:17] LABS: ALBUMIN 3.8 g/dL (3.5-5.0)
[2017-04-20 07:20] LABS: ALB/GLOB RATIO 1.2 (1.0-2.1); ALT/SGPT 32 U/L (21-72); AST/SGOT 21 U/L (17-59); BLOOD UREA NITROGEN 21 mg/dL (9-20); GFR AFRICAN-AMERICAN > 60; GFR NON-AFRICAN AMERICAN > 60
[2017-04-20 07:21] LABS: CALCIUM 9.2 mg/dl (8.6-10.4); MAGNESIUM 2.1 mg/dL (1.6-2.3)
[2017-04-20 07:29] LABS: CK-MB 0.83 ng/mL (0.0-3.38)
--- NOTE | 2017-04-20 11:39 | CARD ---
APPROVED REPORT EKG Measurement Heart [id number] <Conclusion> Atrial fibrillation with rapid ventricular response Nonspecific ST abnormality Abnormal ECG
[2017-04-20] MEDS: Pantoprazole 40 mg EC Tab PO SCH (12:34)
[2017-04-20] MEDS ORDERED: Iohexol 350mg/ml 100 ML ONE (13:04)
[2017-04-20] MEDS ORDERED: Midazolam 2 MG/2 ML VIAL ONE (13:05)
--- NOTE | 2017-04-20 14:08 | CP.PCM.PN ---
Subjective - Date & Time of Evaluation Date of Evaluation: 04/20/17 Time of Evaluation: 14:06 - Subjective Subjective: Patient s/p Cath 1. L Main: Distal 20% 2. LAD: Distal 30% 3. L Cx: 100% occluded 4. RCA: Distal 80% 5. EF: 65%, EDP 18 For PCI of L Cx and RCA tomorrow at [place] 10.30am Continue ASA, Plavix D/C Lovenox today and tomorrow Objective - Vital Signs/Intake and Output Vital Signs (last 24 hours): Temp Pulse Resp BP Pulse Ox 98.1 F 115 H 20 119/66 95 04/20/17 08:15 04/20/17 08:15 04/20/17 08:15 04/20/17 09:09 04/20/17 08:15 Intake and Output: 04/20/17 04/20/17 06:59 18:59 Intake Total 50 Output Total 1300 Balance -1250 - Medications Medications: Current Medications Aspirin (Ecotrin) 81 mg PO DAILY [facility] Last Admin: 04/20/17 12:34 Dose: Not Given Clopidogrel Bisulfate (Plavix) 75 mg PO DAILY [facility] Last Admin: 04/20/17 12:34 Dose: Not Given Diltiazem HCl (Cardizem) 60 mg PO Q6 [facility] Last Admin: 04/20/17 12:34 Dose: Not Given Losartan Potassium (Cozaar) 25 mg PO DAILY [facility] Last Admin: 04/20/17 12:34 Dose: Not Given Metoprolol Tartrate (Lopressor) 25 mg PO DAILY [facility] Last Admin: 04/20/17 09:09 Dose: 25 mg Oxycodone/Acetaminophen (Percocet 5/325 Mg Tab) 1 tab PO BID PRN PRN Reason: Pain, moderate (4-7) Stop: 04/21/17 18:31 Last Admin: 04/19/17 06:30 Dose: 1 tab Pantoprazole Sodium (Protonix Ec Tab) 40 mg PO DAILY [facility] Last Admin: 04/20/17 12:34 Dose: Not Given Rosuvastatin Calcium (Crestor) 5 mg PO HS [facility] Last Admin: 04/19/17 22:52 Dose: 5 mg Tramadol HCl (Ultram) 50 mg PO Q12 [facility] Last Admin: 04/20/17 12:34 Dose: Not Given - Labs Labs: 04/20/17 07:02 04/20/17 07:02 PT 14.6 SECONDS (9.7-12.2) H 04/20/17 07:02 INR 1.3 04/20/17 07:02 APTT 28 SECONDS (21-34) 04/18/17 11:24
--- NOTE | 2017-04-20 14:43 | CP.PCM.PN ---
Subjective - Date & Time of Evaluation Date of Evaluation: 04/20/17 Time of Evaluation: 14:40 - Subjective Subjective: clinically same Objective - Vital Signs/Intake and Output Vital Signs (last 24 hours): Temp Pulse Resp BP Pulse Ox 98.1 F 115 H 20 119/66 95 04/20/17 08:15 04/20/17 08:15 04/20/17 08:15 04/20/17 09:09 04/20/17 08:15 Intake and Output: 04/20/17 04/20/17 06:59 18:59 Intake Total 50 Output Total 1300 Balance -1250 - Medications Medications: Current Medications Aspirin (Ecotrin) 81 mg PO DAILY [facility] Last Admin: 04/20/17 12:34 Dose: Not Given Clopidogrel Bisulfate (Plavix) 75 mg PO DAILY [facility] Last Admin: 04/20/17 12:34 Dose: Not Given Diltiazem HCl (Cardizem) 60 mg PO Q6 [facility] Last Admin: 04/20/17 12:34 Dose: Not Given Diltiazem HCl (Cardizem) 60 mg PO ONCE ONE Stop: 04/20/17 14:24 Losartan Potassium (Cozaar) 25 mg PO DAILY [facility] Last Admin: 04/20/17 12:34 Dose: Not Given Metoprolol Tartrate (Lopressor) 25 mg PO DAILY [facility] Last Admin: 04/20/17 09:09 Dose: 25 mg Oxycodone/Acetaminophen (Percocet 5/325 Mg Tab) 1 tab PO BID PRN PRN Reason: Pain, moderate (4-7) Stop: 04/21/17 18:31 Last Admin: 04/19/17 06:30 Dose: 1 tab Pantoprazole Sodium (Protonix Ec Tab) 40 mg PO DAILY [facility] Last Admin: 04/20/17 12:34 Dose: Not Given Rosuvastatin Calcium (Crestor) 5 mg PO HS [facility] Last Admin: 04/19/17 22:52 Dose: 5 mg Tramadol HCl (Ultram) 50 mg PO Q12 [facility] Last Admin: 04/20/17 12:34 Dose: Not Given - Labs Labs: 04/20/17 07:02 04/20/17 07:02 PT 14.6 SECONDS (9.7-12.2) H 04/20/17 07:02 INR 1.3 04/20/17 07:02 APTT 28 SECONDS (21-34) 04/18/17 11:24 - Constitutional Appears: Well - Head Exam Head Exam: ATRAUMATIC, NORMAL INSPECTION, NORMOCEPHALIC - Eye Exam Eye Exam: EOMI, Normal appearance, PERRL Pupil Exam: NORMAL ACCOMODATION, PERRL - ENT Exam ENT Exam: Mucous Membranes Moist, Normal Exam - Neck Exam Neck Exam: Full ROM, Normal Inspection. absent: Lymphadenopathy - Respiratory Exam Respiratory Exam: Decreased Breath Sounds - Cardiovascular Exam Cardiovascular Exam: REGULAR RHYTHM, +S1, +S2 - GI/Abdominal Exam GI & Abdominal Exam: Soft, Diminished Bowel Sounds - Rectal Exam Rectal Exam: Deferred
--- NOTE | 2017-04-20 16:24 | CP.PCM.CON ---
<Ly Blake - Last Filed: 04/20/17 15:55> History of Present Illness - History of Present Illness History of Present Illness: ICU Consult Note Reason for consult: s/p cardiac cath 61 y/o M with PMH of HTN, GERD, AR with stent placed 2014, CAD with stent placement, and chronic back pain presented initially to the ED on 04/18/2017 for palpitations and chest pain. Pt arrived to the ED for chest pain that started 1 hour prior to arrival. Pt states the pain is radiating down his left arm. Pain was described as a pressure like pain. No medication was taken at home for pain. EKG on arrival to the ED showed A-fib with RVR with a rate of 160. Pt was also found to have positive troponins, which elevated on the second set, and decreased on the third. Pt was started on cardizem to help control rapid heart rate. Patient had cardiac cath with Dr. Hazel on 04/20 showin. L Main: Distal 20% 2. LAD: Distal 30% 3. L Cx: 100% occluded 4. RCA: Distal 80% 5. EF: 65%, EDP 18 Patient for PCI of L Cx and RCA at [facility] on 04[place]. Patient reports feeling better today s/p cath. Denies fever, chills, headache, dizziness, chest pain, palpitations, SOB, cough, abd pain, nausea, vomiting, bladder complaints, pain/swelling in his legs b/l. Patient does report some constipation. PMH: HTN, GERD, AR, CAD, and chronic back pain PSurgHx: Cardiac stent placement, Hernia Repair FamHx: HTN, CAD Social Hx: Scooby tobacco or illicit drug use. Occasional alcohol use Allergies: NKDA Medication: See MAR ROS: Denies fever, chills, headache, dizziness, chest pain, palpitations, SOB, cough, abd pain, nausea, vomiting, bladder complaints, pain/swelling in his legs b/l. Patient does report some constipation. Review of Systems - Constitutional Constitutional: As Per HPI. absent: Chills, Fever - EENT Eyes: As Per HPI. absent: Pain Ears: As Per HPI. absent: Tinnitus, Dizziness Nose/Mouth/Throat: As Per HPI. absent: Sore Throat - Cardiovascular Cardiovascular: As Per HPI. absent: Chest Pain, Claudication, Dyspnea, Dyspnea on Exertion, Edema Additional comments: no pain at cardiac cath site- dressings c/d/i - Respiratory Respiratory: As Per HPI. absent: Cough, Dyspnea, Dyspnea on Exertion, Wheezing , Chest Congestion - Gastrointestinal Gastrointestinal: As Per HPI, Constipation. absent: Abdominal Pain, Diarrhea, Nausea, Vomiting - Genitourinary Genitourinary: As Per HPI. absent: Dysuria, Hematuria - Musculoskeletal Musculoskeletal: As Per HPI. absent: Numbness, Tingling - Integumentary Integumentary: As Per HPI. absent: Dry Skin, Rash - Neurological Neurological: As Per HPI. absent: Dizziness, Numbness, Tingling, Weakness - Psychiatric Psychiatric: As Per HPI. absent: Anxiety, Depression - Endocrine Endocrine: As Per HPI. absent: Palpitations, Polydipsia, Polyphagia, Polyuria - Hematologic/Lymphatic Hematologic: As Per HPI. absent: Easy Bleeding, Easy Bruising, Lymphadenopathy Past Patient History - Infectious Disease Hx of Infectious Diseases: None - Past Medical History & Family History Past Medical History?: Yes - Past Social History Smoking Status: Never Smoked - CARDIAC Hx Hypertension: Yes - PULMONARY Hx Sleep Apnea: Yes (doesnot use CPAP machine) - NEUROLOGICAL Hx Neurological Disorder: No - HEENT Hx HEENT Problems: Yes (Sinus Surgery) Hx Sinusitis: Yes Other/Comment: wear reading eyeglasses - RENAL Hx Chronic Kidney Disease: No - ENDOCRINE/METABOLIC Hx Endocrine Disorders: No - HEMATOLOGICAL/ONCOLOGICAL Hx Blood Disorders: No - INTEGUMENTARY Hx Dermatological Problems: No - MUSCULOSKELETAL/RHEUMATOLOGICAL Hx Falls: No - GASTROINTESTINAL Hx Gastritis: Yes - GENITOURINARY/GYNECOLOGICAL Hx Genitourinary Disorders: No - PSYCHIATRIC Hx Substance Use: No - SURGICAL HISTORY Hx Coronary Stent: Yes - ANESTHESIA Hx Anesthesia: Yes Hx Anesthesia Reactions: No Hx Malignant Hyperthermia: No Has any member of the family had a problem w/ anesthesia?: No Meds Allergies/Adverse Reactions: Allergies Allergy/AdvReac Type Severity Reaction Status Date / Time No Known Allergies Allergy Verified 02/09/17 15:38 - Medications Medications: Current Medications Aspirin (Ecotrin) 81 mg PO DAILY [facility] Last Admin: 04/20/17 12:34 Dose: Not Given Clopidogrel Bisulfate (Plavix) 75 mg PO DAILY [facility] Last Admin: 04/20/17 12:34 Dose: Not Given Diltiazem HCl (Cardizem) 60 mg PO Q6 [facility] Last Admin: 04/20/17 12:34 Dose: Not Given Losartan Potassium (Cozaar) 25 mg PO DAILY [facility] Last Admin: 04/20/17 12:34 Dose: Not Given Metoprolol Tartrate (Lopressor) 25 mg PO DAILY [facility] Last Admin: 04/20/17 09:09 Dose: 25 mg Oxycodone/Acetaminophen (Percocet 5/325 Mg Tab) 1 tab PO BID PRN PRN Reason: Pain, moderate (4-7) Stop: 04/21/17 18:31 Last Admin: 04/19/17 06:30 Dose: 1 tab Pantoprazole Sodium (Protonix Ec Tab) 40 mg PO DAILY [facility] Last Admin: 04/20/17 12:34 Dose: Not Given Rosuvastatin Calcium (Crestor) 5 mg PO HS [facility] Last Admin: 04/19/17 22:52 Dose: 5 mg Tramadol HCl (Ultram) 50 mg PO Q12 [facility] Last Admin: 04/20/17 12:34 Dose: Not Given Physical Exam - Constitutional Appears: Non-toxic, No Acute Distress - Head Exam Head Exam: ATRAUMATIC, NORMAL INSPECTION, NORMOCEPHALIC - Eye Exam Eye Exam: EOMI, Normal appearance, PERRL. absent: Conjunctival injection, Scleral icterus Pupil Exam: NORMAL ACCOMODATION - ENT Exam ENT Exam: Mucous Membranes Moist - Neck Exam Neck exam: Positive for: Full Rom, Normal Inspection - Respiratory Exam Respiratory Exam: Clear to Auscultation Bilateral, NORMAL BREATHING PATTERN. absent: Accessory Muscle Use, Rales, Rhonchi, Wheezes, Respiratory Distress - Cardiovascular Exam Cardiovascular Exam: Tachycardia, Irregular Rhythm, +S1, +S2. absent: Systolic Murmur - GI/Abdominal Exam GI & Abdominal Exam: Distended, Normal Bowel Sounds, Soft. absent: Tenderness - Extremities Exam Extremities exam: Negative for: pedal edema, tenderness Additional comments: dimished pedal pulses b/l cool extremities b/l negative edema b/l - Neurological Exam Neurological exam: Alert, Oriented x3 - Psychiatric Exam Psychiatric exam: Normal Affect, Normal Mood - Skin Skin Exam: Dry, Intact, Normal Color, Warm Results - Vital Signs Recent Vital Signs: Last Vital Signs Temp 98.0 F 04/20/17 15:16 Pulse 114 H 04/20/17 15:20 Resp 18 04/20/17 15:20 BP 126/92 H 04/20/17 15:08 Pulse Ox 98 04/20/17 15:20 - Labs Result Diagrams: 04/20/17 07:02 04/20/17 07:02 Labs: Laboratory Results - last 24 hr 04/19/17 04/19/17 04/20/17 16:27 21:33 06:46 WBC RBC Hgb Hct MCV MCH MCHC RDW Plt Count MPV Neut % (Auto) Lymph % (Auto) [place] % (Auto) Eos % (Auto) Baso % (Auto) Neut # Lymph # [place] # Eos # Baso # PT INR Sodium Potassium Chloride Carbon Dioxide Anion Gap BUN Creatinine Est GFR ( Amer) Est GFR (Non-Af Amer) POC Glucose (mg/dL) 114 H 141 H 133 H Random Glucose Calcium Phosphorus Magnesium Total Bilirubin AST ALT Alkaline Phosphatase Total Creatine Kinase CK-MB (Mass) Troponin I, Quant Total Protein Albumin Globulin Albumin/Globulin Ratio 04/20/17 04/20/17 04/20/17 07:02 07:02 07:02 WBC 11.2 H RBC 5.42 Hgb 16.1 Hct 47.8 MCV 88.2 MCH 29.6 MCHC 33.6 RDW 14.7 H Plt Count 174 MPV 8.7 Neut % (Auto) 74.4 Lymph % (Auto) 15.6 L [place] % (Auto) 9.7 Eos % (Auto) 0.0 Baso % (Auto) 0.3 Neut # 8.3 H Lymph # 1.8 [place] # 1.1 H Eos # 0.0 Baso # 0.0 PT 14.6 H INR 1.3 Sodium 138 Potassium 4.1 Chloride 106 Carbon Dioxide 21 L Anion Gap 15 BUN 21 H Creatinine 1.0 Est GFR ( Amer) > 60 Est GFR (Non-Af Amer) > 60 POC Glucose (mg/dL) Random Glucose 130 H Calcium 9.2 Phosphorus 3.5 Magnesium 2.1 Total Bilirubin 2.1 H AST 21 ALT 32 Alkaline Phosphatase 72 Total Creatine Kinase 76 CK-MB (Mass) 0.83 Troponin I, Quant 0.0930 Total Protein 6.9 Albumin 3.8 Globulin 3.1 Albumin/Globulin Ratio 1.2 04/20/17 11:24 WBC RBC Hgb Hct MCV MCH MCHC RDW Plt Count MPV Neut % (Auto) Lymph % (Auto) [place] % (Auto) Eos % (Auto) Baso % (Auto) Neut # Lymph # [place] # Eos # Baso # PT INR Sodium Potassium Chloride Carbon Dioxide Anion Gap BUN Creatinine Est GFR ( Amer) Est GFR (Non-Af Amer) POC Glucose (mg/dL) 117 H Random Glucose Calcium Phosphorus Magnesium Total Bilirubin AST ALT Alkaline Phosphatase Total Creatine Kinase CK-MB (Mass) Troponin I, Quant Total Protein Albumin Globulin Albumin/Globulin Ratio Assessment & Plan - Assessment and Plan (Free Text) Assessment: 61 y/o M with PMH of HTN, GERD, AR with stent placed 2014, CAD with stent placement, and chronic back pain presented initially to the ED on 04/18/2017 for palpitations and chest pain Plan: Neurology -AO x 3 -no acute issues Cardiovascular -troponin: 0.132--> 0.2300--> 0.1530--> 0.093 this AM -no acute ST elevations on EKG; Afib with RVR -s/p cardiac cath this AM with Dr Hazel 1. L Main: Distal 20% 2. LAD: Distal 30% 3. L Cx: 100% occluded 4. RCA: Distal 80% 5. EF: 65%, EDP 18 -patient for PCI of L Cx and RCA at [facility] tomorrow -Echocardiogram shows normal EF, no regional wall abnormalities, and normal LV function -Dr Hazel cardio following -Dr Dawkins cardio following Respiratory -no acute issues -breathing spontaneously on 2L NC GI -no acute issues Renal -no acute issues Heme -no acute issues MSK -no acute issues ID -WBC 11.2: likely reactionary -Monitor DVT ppx: Lovenox on hold; SCD c/i after cardiac cath GI ppx: Crestor 40mg po daily Code status: full code Case discussed with Dr. Magen Blake PGY2 <Jesse Us S - Last Filed: 04/20/17 18:22> Meds - Medications Medications: Current Medications Aspirin (Ecotrin) 81 mg PO DAILY [facility] Last Admin: 04/20/17 12:34 Dose: Not Given Clopidogrel Bisulfate (Plavix) 75 mg PO DAILY [facility] Last Admin: 04/20/17 12:34 Dose: Not Given Diltiazem HCl (Cardizem) 60 mg PO Q6 [facility] Last Admin: 04/20/17 17:07 Dose: 60 mg Losartan Potassium (Cozaar) 25 mg PO DAILY [facility] Last Admin: 04/20/17 12:34 Dose: Not Given Metoprolol Tartrate (Lopressor) 25 mg PO DAILY [facility] Last Admin: 04/20/17 09:09 Dose: 25 mg Oxycodone/Acetaminophen (Percocet 5/325 Mg Tab) 1 tab PO BID PRN PRN Reason: Pain, moderate (4-7) Stop: 04/21/17 18:31 Last Admin: 04/19/17 06:30 Dose: 1 tab Pantoprazole Sodium (Protonix Ec Tab) 40 mg PO DAILY [facility] Last Admin: 04/20/17 12:34 Dose: Not Given Rosuvastatin Calcium (Crestor) 5 mg PO HS [facility] Last Admin: 04/19/17 22:52 Dose: 5 mg Tramadol HCl (Ultram) 50 mg PO Q12 [facility] Last Admin: 04/20/17 12:34 Dose: Not Given Results - Vital Signs Recent Vital Signs: Last Vital Signs Temp 98.0 F 04/20/17 15:16 Pulse 105 H 04/20/17 17:00 Resp 15 04/20/17 17:00 BP 138/83 04/20/17 16:53 Pulse Ox 98 04/20/17 17:00 - Labs Result Diagrams: 04/20/17 07:02 04/20/17 07:02 Labs: Laboratory Results - last 24 hr 04/19/17 04/20/17 04/20/17 21:33 06:46 07:02 WBC 11.2 H RBC 5.42 Hgb 16.1 Hct 47.8 MCV 88.2 MCH 29.6 MCHC 33.6 RDW 14.7 H Plt Count 174 MPV 8.7 Neut % (Auto) 74.4 Lymph % (Auto) 15.6 L [place] % (Auto) 9.7 Eos % (Auto) 0.0 Baso % (Auto) 0.3 Neut # 8.3 H Lymph # 1.8 [place] # 1.1 H Eos # 0.0 Baso # 0.0 PT INR Sodium Potassium Chloride Carbon Dioxide Anion Gap BUN Creatinine Est GFR ( Amer) Est GFR (Non-Af Amer) POC Glucose (mg/dL) 141 H 133 H Random Glucose Calcium Phosphorus Magnesium Total Bilirubin AST ALT Alkaline Phosphatase Total Creatine Kinase CK-MB (Mass) Troponin I, Quant Total Protein Albumin Globulin Albumin/Globulin Ratio 04/20/17 04/20/17 04/20/17 07:02 07:02 11:24 WBC RBC Hgb Hct MCV MCH MCHC RDW Plt Count MPV Neut % (Auto) Lymph % (Auto) [place] % (Auto) Eos % (Auto) Baso % (Auto) Neut # Lymph # [place] # Eos # Baso # PT 14.6 H INR 1.3 Sodium 138 Potassium 4.1 Chloride 106 Carbon Dioxide 21 L Anion Gap 15 BUN 21 H Creatinine 1.0 Est GFR ( Amer) > 60 Est GFR (Non-Af Amer) > 60 POC Glucose (mg/dL) 117 H Random Glucose 130 H Calcium 9.2 Phosphorus 3.5 Magnesium 2.1 Total Bilirubin 2.1 H AST 21 ALT 32 Alkaline Phosphatase 72 Total Creatine Kinase 76 CK-MB (Mass) 0.83 Troponin I, Quant 0.0930 Total Protein 6.9 Albumin 3.8 Globulin 3.1 Albumin/Globulin Ratio 1.2 Attending/Attestation - Attestation I have personally seen and examined this patient.: Yes I have fully participated in the care of the patient.: Yes I have reviewed all pertinent clinical information: Yes Notes (Text): 04/20/17 18:21 pt seen and examined S/P cardiac cath L Main: Distal 20% 2. LAD: Distal 30% 3. L Cx: 100% occluded 4. RCA: Distal 80% 5. EF: 65%, EDP 18 Patient for PCI of L Cx and RCA at [facility] on 04/21.
--- NOTE | 2017-04-20 16:28 | CP.PCM.PN ---
Subjective - Date & Time of Evaluation Date of Evaluation: 04/20/17 Time of Evaluation: 16:25 - Subjective Subjective: Progress Note for Dr. Dawkins Pt seen and examined at bedside. Pt doing well overnight with no acute events as per nursing. No complaints this morning. Pt is scheduled for cardiac catheterization today. Denies CP, SOB, N/V/D. Objective - Vital Signs/Intake and Output Vital Signs (last 24 hours): Temp Pulse Resp BP Pulse Ox 98.0 F 114 H 18 126/92 H 98 04/20/17 15:16 04/20/17 15:20 04/20/17 15:20 04/20/17 15:08 04/20/17 15:20 Intake and Output: 04/20/17 04/20/17 06:59 18:59 Intake Total 50 125 Output Total 1300 75 Balance -1250 50 - Medications Medications: Current Medications Aspirin (Ecotrin) 81 mg PO DAILY [facility] Last Admin: 04/20/17 12:34 Dose: Not Given Clopidogrel Bisulfate (Plavix) 75 mg PO DAILY [facility] Last Admin: 04/20/17 12:34 Dose: Not Given Diltiazem HCl (Cardizem) 60 mg PO Q6 [facility] Last Admin: 04/20/17 12:34 Dose: Not Given Losartan Potassium (Cozaar) 25 mg PO DAILY [facility] Last Admin: 04/20/17 12:34 Dose: Not Given Metoprolol Tartrate (Lopressor) 25 mg PO DAILY [facility] Last Admin: 04/20/17 09:09 Dose: 25 mg Oxycodone/Acetaminophen (Percocet 5/325 Mg Tab) 1 tab PO BID PRN PRN Reason: Pain, moderate (4-7) Stop: 04/21/17 18:31 Last Admin: 04/19/17 06:30 Dose: 1 tab Pantoprazole Sodium (Protonix Ec Tab) 40 mg PO DAILY [facility] Last Admin: 04/20/17 12:34 Dose: Not Given Rosuvastatin Calcium (Crestor) 5 mg PO HS [facility] Last Admin: 04/19/17 22:52 Dose: 5 mg Tramadol HCl (Ultram) 50 mg PO Q12 [facility] Last Admin: 04/20/17 12:34 Dose: Not Given - Labs Labs: 04/20/17 07:02 04/20/17 07:02 PT 14.6 SECONDS (9.7-12.2) H 04/20/17 07:02 INR 1.3 04/20/17 07:02 APTT 28 SECONDS (21-34) 04/18/17 11:24 - Constitutional Appears: Well, No Acute Distress - Head Exam Head Exam: ATRAUMATIC, NORMAL INSPECTION, NORMOCEPHALIC - Respiratory Exam Respiratory Exam: Clear to Ausculation Bilateral, NORMAL BREATHING PATTERN - Cardiovascular Exam Cardiovascular Exam: RRR, +S1, +S2 - GI/Abdominal Exam GI & Abdominal Exam: Soft, Normal Bowel Sounds. absent: Tenderness - Extremities Exam Extremities Exam: Normal Inspection. absent: Calf Tenderness, Pedal Edema - Neurological Exam Neurological Exam: Alert, Awake, Oriented x3 - Skin Skin Exam: Intact, Normal Color, Warm Assessment and Plan (1) Chest pain Assessment & Plan: Pt underwent cardiac cath today Cath showed total occlusion of the circumflex artery and 80% occlusion of the distal RCA Pt will be transferred to [facility] tomorrow for stent placement Lovenox stopped at this time Status: Acute
[2017-04-21 06:21] LABS: BASO % 0.3 % (0.0-2.0); EOS % 0.1 % (0.0-4.0); HEMOGLOBIN 16.4 g/dL (12.0-18.0); LYMPH # 1.4 K/uL (1.0-4.3); LYMPH % 13.5 % (20.0-40.0); MEAN CELL VOLUME 87.8 fL (80.0-94.0); MEAN CORPUSCULAR HEMOGLOBIN 29.9 pg (27.0-31.0); MEAN CORPUSCULAR HGB CONC 34.1 g/dL (33.0-37.0); MEAN PLATELET VOLUME 8.6 fL (7.2-11.7); MONO # 0.6 K/uL (0.0-0.8); MONO % 6.2 % (0.0-10.0); NEUT % 79.9 % (50.0-75.0); NRBC % 0.1 % (0.0-2.0); RBC 5.49 Mil/uL (4.40-5.90); RED CELL DISTRIBUTION WIDTH 14.8 % (11.5-14.5)
[2017-04-21 06:31] LABS: ALBUMIN 3.7 g/dL (3.5-5.0)
[2017-04-21 06:33] LABS: ALB/GLOB RATIO 1.2 (1.0-2.1)
[2017-04-21 06:35] LABS: AST/SGOT 30 U/L (17-59); BLOOD UREA NITROGEN 24 mg/dL (9-20); GFR AFRICAN-AMERICAN > 60; GFR NON-AFRICAN AMERICAN > 60
[2017-04-21 06:36] LABS: ALT/SGPT 37 U/L (21-72); CALCIUM 8.9 mg/dl (8.6-10.4); MAGNESIUM 2.3 mg/dL (1.6-2.3)
--- NOTE | 2017-04-21 07:39 | CP.CCUPN ---
CCU Subjective - Physician Review Subjective (Free Text): 04/21/17 16:11 Patient seen and examined at bedside s/p insertion of VAUGHN of RCA today 04/21. Patient resting comfortably in bed. No pain at site and dressings c/d/i. Denied fever, chills, headache, dizziness, chest pain, palpitations, SOB, cough, abd pain, nausea, vomiting, bladder complaints, pain/swelling in his legs b/l. CCU Objective - Vital Signs / Intake & Output Vital Signs (Last 4 hours): Vital Signs Temp Pulse Resp BP Pulse Ox 04/21/17 07:08 111 H 12 132/94 H 96 04/21/17 07:00 127 H 20 95 04/21/17 06:54 115 H 14 136/85 96 04/21/17 06:38 120 H 10 L 136/80 94 L 04/21/17 06:30 121 H 13 95 04/21/17 06:23 116 H 16 127/83 95 04/21/17 06:20 142 H 14 95 04/21/17 06:10 126 H 12 96 04/21/17 06:08 121 H 15 119/85 97 04/21/17 06:00 103 H 13 04/21/17 05:53 135 H 16 109/82 99 04/21/17 05:50 127 H 13 98 04/21/17 05:40 114 H 16 94 L 04/21/17 05:38 113 H 11 L 126/75 97 04/21/17 05:30 118 H 12 95 04/21/17 05:24 136 H 12 121/67 95 04/21/17 05:20 108 H 16 95 04/21/17 05:10 118 H 11 L 96 04/21/17 05:00 118 H 12 96 04/21/17 04:53 116 H 11 L 116/80 97 04/21/17 04:50 112 H 15 95 04/21/17 04:40 112 H 15 95 04/21/17 04:38 123 H 16 119/78 95 04/21/17 04:30 109 H 15 95 04/21/17 04:20 126 H 17 98 04/21/17 04:10 122 H 18 95 04/21/17 04:08 116 H 19 111/80 95 04/21/17 04:00 98 F 116 H 14 97 04/21/17 03:55 128 H 18 125/81 93 L 04/21/17 03:50 122 H 14 96 04/21/17 03:40 136 H 18 96 Intake and Output (Last 8hrs): Intake & Output 04/20/17 04/21/17 04/21/17 22:59 06:59 14:59 Intake Total 945 150 Output Total 1475 550 400 Balance -530 -400 -400 Weight 251 lb 5.231 oz Intake: Oral 945 150 Output: Urine 1475 550 400 Urine, Voided 1475 550 400 - Physical Exam Head: Positive for: Atraumatic, Normocephalic Pupils: Positive for: PERRL Extroacular Muscles: Positive for: EOMI Conjunctiva: Positive for: Normal. Negative for: Injected, Icteric Mouth: Positive for: Moist Mucous Membranes Neck: Positive for: Normal Range of Motion Respiratory/Chest: Positive for: Clear to Auscultation, Good Air Exchange. Negative for: Respiratory Distress, Accessory Muscle Use, Wheezes, Rales, Rhonchi Cardiovascular: Positive for: Normal S1, S2, Irregular Rhythm, Tachycardic. Negative for: Regular Rate and Rhythm Abdomen: Positive for: Normal Bowel Sounds. Negative for: Tenderness, Distention Upper Extremity: Positive for: Normal Inspection, NORMAL PULSES. Negative for: Cyanosis, Edema Lower Extremity: Positive for: Normal Inspection, Other (diminshed pulses b/l). Negative for: Edema Neurological: Positive for: CN II-XII Intact, Speech Normal Skin: Positive for: Warm, Dry, Normal Color Psychiatric: Positive for: Alert, Oriented x 3, Normal Insight, Normal Concentration - Medications Active Medications: Active Medications Generic Name Dose Route Start Last Admin Trade Name Freq PRN Reason Stop Dose Admin Aspirin 81 mg 04/19/17 10:00 04/20/17 12:34 Ecotrin PO Not Given DAILY [facility] Clopidogrel Bisulfate 75 mg 04/19/17 10:00 04/20/17 12:34 Plavix PO Not Given DAILY [facility] Diltiazem HCl 60 mg 04/19/17 01:00 04/21/17 05:41 Cardizem PO 60 mg Q6 NELY Administration Losartan Potassium 25 mg 04/19/17 10:00 04/20/17 12:34 Cozaar PO Not Given DAILY [facility] Metoprolol Tartrate 25 mg 04/19/17 10:00 04/20/17 09:09 Lopressor PO 25 mg DAILY NELY Administration Oxycodone/Acetaminophen 1 tab 04/18/17 18:17 04/19/17 06:30 Percocet 5/325 Mg Tab PO 04/21/17 18:31 1 tab BID PRN Administration Pain, moderate (4-7) Pantoprazole Sodium 40 mg 04/19/17 10:00 04/20/17 12:34 Protonix Ec Tab PO Not Given DAILY [facility] Rosuvastatin Calcium 5 mg 04/19/17 22:00 04/20/17 21:35 Crestor PO 5 mg HS NELY Administration Tramadol HCl 50 mg 04/18/17 22:00 04/20/17 21:35 Ultram PO 50 mg Q12 NELY Administration - Patient Studies Lab Studies: Lab Studies 04/21/17 04/21/17 04/20/17 Range/Units 06:03 06:03 11:24 WBC 10.0 (4.8-10.8) K/uL RBC 5.49 (4.40-5.90) Mil/uL Hgb 16.4 (12.0-18.0) g/dL Hct 48.2 (35.0-51.0) % MCV 87.8 (80.0-94.0) fL MCH 29.9 (27.0-31.0) pg MCHC 34.1 (33.0-37.0) g/dL RDW 14.8 H (11.5-14.5) % Plt Count 169 (130-400) K/uL MPV 8.6 (7.2-11.7) fL Neut % (Auto) 79.9 H (50.0-75.0) % Lymph % (Auto) 13.5 L (20.0-40.0) % Mingo % (Auto) 6.2 (0.0-10.0) % Eos % (Auto) 0.1 (0.0-4.0) % Baso % (Auto) 0.3 (0.0-2.0) % Neut # 8.0 H (1.8-7.0) K/uL Lymph # 1.4 (1.0-4.3) K/uL Mingo # 0.6 (0.0-0.8) K/uL Eos # 0.0 (0.0-0.7) K/uL Baso # 0.0 (0.0-0.2) K/uL Sodium 136 (132-148) mmol/L Potassium 4.2 (3.6-5.2) mmol/L Chloride 102 (98-107) mmol/L Carbon Dioxide 22 (22-30) mmol/L Anion Gap 16 (10-20) BUN 24 H (9-20) mg/dL Creatinine 0.9 (0.8-1.5) MG/DL Est GFR ( Amer) > 60 Est GFR (Non-Af Amer) > 60 POC Glucose (mg/dL) 117 H (65-110) mg/dL Random Glucose 126 H (75-110) mg/dL Calcium 8.9 (8.6-10.4) mg/dl Phosphorus 3.8 (2.5-4.5) mg/dL Magnesium 2.3 (1.6-2.3) mg/dL Total Bilirubin 2.4 H (0.2-1.3) mg/dL AST 30 (17-59) U/L ALT 37 (21-72) U/L Alkaline Phosphatase 67 (38-126) U/L Total Creatine Kinase (55-170) U/L CK-MB (Mass) (0.0-3.38) ng/mL Troponin I, Quant (0.00-0.120) ng/mL Total Protein 6.6 (6.3-8.3) g/dL Albumin 3.7 (3.5-5.0) g/dL Globulin 3.0 (2.2-3.9) gm/dL Albumin/Globulin Ratio 1.2 (1.0-2.1) 04/20/17 Range/Units 07:02 WBC (4.8-10.8) K/uL RBC (4.40-5.90) Mil/uL Hgb (12.0-18.0) g/dL Hct (35.0-51.0) % MCV (80.0-94.0) fL MCH (27.0-31.0) pg MCHC (33.0-37.0) g/dL RDW (11.5-14.5) % Plt Count (130-400) K/uL MPV (7.2-11.7) fL Neut % (Auto) (50.0-75.0) % Lymph % (Auto) (20.0-40.0) % Mingo % (Auto) (0.0-10.0) % Eos % (Auto) (0.0-4.0) % Baso % (Auto) (0.0-2.0) % Neut # (1.8-7.0) K/uL Lymph # (1.0-4.3) K/uL Mingo # (0.0-0.8) K/uL Eos # (0.0-0.7) K/uL Baso # (0.0-0.2) K/uL Sodium (132-148) mmol/L Potassium (3.6-5.2) mmol/L Chloride (98-107) mmol/L Carbon Dioxide (22-30) mmol/L Anion Gap (10-20) BUN 21 H (9-20) mg/dL Creatinine (0.8-1.5) MG/DL Est GFR ( Amer) Est GFR (Non-Af Amer) POC Glucose (mg/dL) (65-110) mg/dL Random Glucose 130 H (75-110) mg/dL Calcium 9.2 (8.6-10.4) mg/dl Phosphorus 3.5 (2.5-4.5) mg/dL Magnesium 2.1 (1.6-2.3) mg/dL Total Bilirubin (0.2-1.3) mg/dL AST (17-59) U/L ALT 32 (21-72) U/L Alkaline Phosphatase (38-126) U/L Total Creatine Kinase 76 (55-170) U/L CK-MB (Mass) 0.83 (0.0-3.38) ng/mL Troponin I, Quant 0.0930 (0.00-0.120) ng/mL Total Protein (6.3-8.3) g/dL Albumin (3.5-5.0) g/dL Globulin (2.2-3.9) gm/dL Albumin/Globulin Ratio (1.0-2.1) Laboratory Results - last 24 hr 04/20/17 04/20/17 04/21/17 07:02 11:24 06:03 WBC 10.0 RBC 5.49 Hgb 16.4 Hct 48.2 MCV 87.8 MCH 29.9 MCHC 34.1 RDW 14.8 H Plt Count 169 MPV 8.6 Neut % (Auto) 79.9 H Lymph % (Auto) 13.5 L Mingo % (Auto) 6.2 Eos % (Auto) 0.1 Baso % (Auto) 0.3 Neut # 8.0 H Lymph # 1.4 Mingo # 0.6 Eos # 0.0 Baso # 0.0 Sodium Potassium Chloride Carbon Dioxide Anion Gap BUN 21 H Creatinine Est GFR ( Amer) Est GFR (Non-Af Amer) POC Glucose (mg/dL) 117 H Random Glucose 130 H Calcium 9.2 Phosphorus 3.5 Magnesium 2.1 Total Bilirubin AST ALT 32 Alkaline Phosphatase Total Creatine Kinase 76 CK-MB (Mass) 0.83 Troponin I, Quant 0.0930 Total Protein Albumin Globulin Albumin/Globulin Ratio 04/21/17 06:03 WBC RBC Hgb Hct MCV MCH MCHC RDW Plt Count MPV Neut % (Auto) Lymph % (Auto) Mingo % (Auto) Eos % (Auto) Baso % (Auto) Neut # Lymph # Mingo # Eos # Baso # Sodium 136 Potassium 4.2 Chloride 102 Carbon Dioxide 22 Anion Gap 16 BUN 24 H Creatinine 0.9 Est GFR ( Amer) > 60 Est GFR (Non-Af Amer) > 60 POC Glucose (mg/dL) Random Glucose 126 H Calcium 8.9 Phosphorus 3.8 Magnesium 2.3 Total Bilirubin 2.4 H AST 30 ALT 37 Alkaline Phosphatase 67 Total Creatine Kinase CK-MB (Mass) Troponin I, Quant Total Protein 6.6 Albumin 3.7 Globulin 3.0 Albumin/Globulin Ratio 1.2 Fingerstick Blood Sugar Results: 117 Review of Systems - Constitutional Constitutional: absent: Fever, Chills - EENT Eyes: As Per HPI. absent: Blurred Vision Ears: As Per HPI. absent: Dizziness Nose/Mouth/Throat: As Per HPI. absent: Sore Throat - Cardiovascular Cardiovascular: As Per HPI, Irregular Heart Rhythm. absent: Chest Pain, Dyspnea - Respiratory Respiratory: As Per HPI. absent: Cough, Dyspnea, Chest Congestion - Gastrointestinal Gastrointestinal: As Per HPI. absent: Abdominal Pain, Diarrhea, Nausea, Vomiting - Genitourinary Genitourinary: As Per HPI. absent: Dysuria - Musculoskeletal Musculoskeletal: As Par HPI. absent: Numbness, Tingling - Integumentary Integumentary: As Per HPI. absent: Rash - Neurological Neurological: As Per HPI. absent: Dizziness, Numbness, Tingling, Weakness - Psychiatric Psychiatric: As Per HPI. absent: Anxiety, Depression - Endocrine Endocrine: As Per HPI. absent: Polydipsia, Polyphagia, Polyuria Critical Care Progress Note - Nutrition Nutrition: Nutrition Category Date Time Status NPO Diet [DIET] Diets 04/21/17 Breakfast Active Assessment/Plan - Assessment and Plan (Free Text) Assessment: 61 y/o M with PMH of HTN, GERD, [place] with stent placed 2014, CAD with stent placement, and chronic back pain presented initially to the ED on 04/18/2017 for palpitations and chest pain Plan: Neurology -AO x 3 -no acute issues Cardiovascular -troponin: 0.132--> 0.2300--> 0.1530--> 0.093 -no acute ST elevations on EKG; Afib with RVR -s/p VAUGHN of RCA this AM 04/21 -s/p cardiac cath this AM with Dr Hazel 1. L Main: Distal 20% 2. LAD: Distal 30% 3. L Cx: 100% occluded 4. RCA: Distal 80% 5. EF: 65%, EDP 18 -Echocardiogram shows normal EF, no regional wall abnormalities, and normal LV function -ASA 81mg po daily -Plavix 75mg po daily -Cardizem 60mg po q6 -Cozaar 25mg po daily -Lopressor 25mg po daily -Lovenox 80mg sc q12 -recommend electrical cardioversion for Afib -Dr Hazel cardio following -Dr Dawkins cardio following Respiratory -no acute issues -breathing spontaneously on 2L NC GI -no acute issues Renal -no acute issues Heme -no acute issues MSK -no acute issues ID -WBC 10 -Monitor DVT ppx: Lovenox 80mg sc q12; SCD c/i after VAUGHN insertion GI ppx: Crestor 40mg po daily Code status: full code Case discussed with Dr. Magen Blake PGY2
[2017-04-21] MEDS: Pantoprazole 40 mg EC Tab PO SCH ×2 (07:46→11:44)
--- NOTE | 2017-04-21 10:30 | CP.PCM.PN ---
Subjective - Date & Time of Evaluation Date of Evaluation: 04/21/17 Time of Evaluation: 10:22 - Subjective Subjective: Progress Note for Dr. Dawkins Pt seen and examined at bedside. No acute events overnight as per nursing. Pt will undergo cardiac catheterization at [facility] later this morning. Denies CP, SOB, N/V/D. Objective - Vital Signs/Intake and Output Vital Signs (last 24 hours): Temp Pulse Resp BP Pulse Ox 98.2 F 101 H 13 125/98 H 98 04/21/17 08:00 04/21/17 08:38 04/21/17 08:38 04/21/17 08:38 04/21/17 08:38 Intake and Output: 04/21/17 04/21/17 06:59 18:59 Intake Total 870 50 Output Total 1950 700 Balance -1080 -650 - Medications Medications: Current Medications Aspirin (Ecotrin) 81 mg PO DAILY [facility] Last Admin: 04/21/17 07:46 Dose: 81 mg Clopidogrel Bisulfate (Plavix) 75 mg PO DAILY [facility] Last Admin: 04/21/17 07:46 Dose: 75 mg Diltiazem HCl (Cardizem) 60 mg PO Q6 [facility] Last Admin: 04/21/17 05:41 Dose: 60 mg Losartan Potassium (Cozaar) 25 mg PO DAILY [facility] Last Admin: 04/21/17 08:36 Dose: 25 mg Metoprolol Tartrate (Lopressor) 25 mg PO DAILY [facility] Last Admin: 04/21/17 07:45 Dose: 25 mg Oxycodone/Acetaminophen (Percocet 5/325 Mg Tab) 1 tab PO BID PRN PRN Reason: Pain, moderate (4-7) Stop: 04/21/17 18:31 Last Admin: 04/19/17 06:30 Dose: 1 tab Pantoprazole Sodium (Protonix Ec Tab) 40 mg PO DAILY [facility] Last Admin: 04/21/17 07:46 Dose: 40 mg Rosuvastatin Calcium (Crestor) 5 mg PO HS [facility] Last Admin: 04/20/17 21:35 Dose: 5 mg Tramadol HCl (Ultram) 50 mg PO Q12 [facility] Last Admin: 04/21/17 07:47 Dose: 50 mg - Labs Labs: 04/21/17 06:03 04/21/17 06:03 PT 14.6 SECONDS (9.7-12.2) H 04/20/17 07:02 INR 1.3 04/20/17 07:02 APTT 28 SECONDS (21-34) 04/18/17 11:24 - Constitutional Appears: Non-toxic, No Acute Distress - Head Exam Head Exam: ATRAUMATIC, NORMAL INSPECTION, NORMOCEPHALIC - Respiratory Exam Respiratory Exam: Clear to Ausculation Bilateral, NORMAL BREATHING PATTERN - Cardiovascular Exam Cardiovascular Exam: RRR, +S1, +S2 - GI/Abdominal Exam GI & Abdominal Exam: Soft, Normal Bowel Sounds. absent: Tenderness - Extremities Exam Extremities Exam: absent: Calf Tenderness, Pedal Edema - Neurological Exam Neurological Exam: Alert, Awake, Oriented x3 - Skin Skin Exam: Intact, Normal Color, Warm Assessment and Plan (1) Chest pain Assessment & Plan: Diagnostic cardiac catheterization showed total occlusion of circumflex artery and 80% occlusion of the distal RCA Pt will undergo therapeutic catheterization at [facility] Pt will have medication adjusted upon return Status: Acute
--- NOTE | 2017-04-21 12:30 | CP.PCM.PN ---
Subjective - Date & Time of Evaluation Date of Evaluation: 04/21/17 Time of Evaluation: 12:26 - Subjective Subjective: Patient s/p Successful VAUGHN of RCA Unsuccessful PCI of L Cx ([employer]) Recommend electrical cardioversion for A Fib Continue ASA 81 and Plavix 75 for CAD Anticoagulation for A Fib as per Dr. Dawkins recommendations Objective - Vital Signs/Intake and Output Vital Signs (last 24 hours): Temp Pulse Resp BP Pulse Ox 98.2 F 101 H 13 125/98 H 98 04/21/17 08:00 04/21/17 08:38 04/21/17 08:38 04/21/17 08:38 04/21/17 08:38 Intake and Output: 04/21/17 04/21/17 06:59 18:59 Intake Total 870 50 Output Total 1950 700 Balance -1080 -650 - Medications Medications: Current Medications Aspirin (Ecotrin) 81 mg PO DAILY [facility] Last Admin: 04/21/17 11:43 Dose: Not Given Clopidogrel Bisulfate (Plavix) 75 mg PO DAILY [facility] Last Admin: 04/21/17 11:43 Dose: Not Given Diltiazem HCl (Cardizem) 60 mg PO Q6 [facility] Last Admin: 04/21/17 05:41 Dose: 60 mg Losartan Potassium (Cozaar) 25 mg PO DAILY [facility] Last Admin: 04/21/17 11:42 Dose: Not Given Metoprolol Tartrate (Lopressor) 25 mg PO DAILY [facility] Last Admin: 04/21/17 11:43 Dose: Not Given Oxycodone/Acetaminophen (Percocet 5/325 Mg Tab) 1 tab PO BID PRN PRN Reason: Pain, moderate (4-7) Stop: 04/21/17 18:31 Last Admin: 04/19/17 06:30 Dose: 1 tab Pantoprazole Sodium (Protonix Ec Tab) 40 mg PO DAILY [facility] Last Admin: 04/21/17 11:44 Dose: Not Given Rosuvastatin Calcium (Crestor) 5 mg PO HS [facility] Last Admin: 04/20/17 21:35 Dose: 5 mg Tramadol HCl (Ultram) 50 mg PO Q12 [facility] Last Admin: 04/21/17 11:45 Dose: Not Given - Labs Labs: 04/21/17 06:03 04/21/17 06:03 PT 14.6 SECONDS (9.7-12.2) H 04/20/17 07:02 INR 1.3 04/20/17 07:02 APTT 28 SECONDS (21-34) 04/18/17 11:24
[2017-04-21] MEDS: Sodium Chloride 0.9% 1,000 ML IV SCH (16:22)
--- NOTE | 2017-04-21 18:12 | CP.PCM.PN ---
Subjective - Date & Time of Evaluation Date of Evaluation: 04/21/17 Time of Evaluation: 14:00 - Subjective Subjective: clinically same Objective - Vital Signs/Intake and Output Vital Signs (last 24 hours): Temp Pulse Resp BP Pulse Ox 97.7 F 134 H 16 111/69 97 04/21/17 16:00 04/21/17 17:00 04/21/17 17:00 04/21/17 16:39 04/21/17 17:00 Intake and Output: 04/21/17 04/21/17 06:59 18:59 Intake Total 870 250 Output Total 1950 700 Balance -1080 -450 - Medications Medications: Current Medications Aspirin (Ecotrin) 81 mg PO DAILY [facility] Last Admin: 04/21/17 11:43 Dose: Not Given Clopidogrel Bisulfate (Plavix) 75 mg PO DAILY [facility] Last Admin: 04/21/17 11:43 Dose: Not Given Diltiazem HCl (Cardizem) 60 mg PO Q6 [facility] Last Admin: 04/21/17 17:54 Dose: 60 mg Enoxaparin Sodium (Lovenox) 80 mg SC Q12 [facility] Sodium Chloride (Sodium Chloride 0.9%) 1,000 mls @ 100 mls/hr IV .Q10H [facility] Stop: 04/21/17 23:59 Last Admin: 04/21/17 16:22 Dose: 100 mls/hr Losartan Potassium (Cozaar) 25 mg PO DAILY [facility] Last Admin: 04/21/17 11:42 Dose: Not Given Metoprolol Tartrate (Lopressor) 25 mg PO DAILY [facility] Last Admin: 04/21/17 11:43 Dose: Not Given Oxycodone/Acetaminophen (Percocet 5/325 Mg Tab) 1 tab PO BID PRN PRN Reason: Pain, moderate (4-7) Stop: 04/21/17 18:31 Last Admin: 04/19/17 06:30 Dose: 1 tab Pantoprazole Sodium (Protonix Ec Tab) 40 mg PO DAILY [facility] Last Admin: 04/21/17 11:44 Dose: Not Given Rosuvastatin Calcium (Crestor) 5 mg PO HS [facility] Last Admin: 04/20/17 21:35 Dose: 5 mg Tramadol HCl (Ultram) 50 mg PO Q12 [facility] Last Admin: 04/21/17 11:45 Dose: Not Given - Labs Labs: 04/21/17 06:03 04/21/17 06:03 PT 14.6 SECONDS (9.7-12.2) H 04/20/17 07:02 INR 1.3 04/20/17 07:02 APTT 28 SECONDS (21-34) 04/18/17 11:24 - Constitutional Appears: Well - Head Exam Head Exam: ATRAUMATIC, NORMAL INSPECTION, NORMOCEPHALIC - Eye Exam Eye Exam: EOMI, Normal appearance, PERRL Pupil Exam: NORMAL ACCOMODATION, PERRL - ENT Exam ENT Exam: Mucous Membranes Moist, Normal Exam - Neck Exam Neck Exam: Full ROM, Normal Inspection. absent: Lymphadenopathy - Respiratory Exam Respiratory Exam: Decreased Breath Sounds - Cardiovascular Exam Cardiovascular Exam: REGULAR RHYTHM, +S1, +S2 - GI/Abdominal Exam GI & Abdominal Exam: Soft, Diminished Bowel Sounds - Rectal Exam Rectal Exam: Deferred
[2017-04-22] MEDS: Sodium Chloride 0.9% 1,000 ML IV SCH (01:14)
[2017-04-22 06:48] LABS: BASO % 0.1 % (0.0-2.0); HEMOGLOBIN 15.5 g/dL (12.0-18.0); LYMPH # 1.8 K/uL (1.0-4.3); LYMPH % 16.5 % (20.0-40.0); MEAN CELL VOLUME 87.5 fL (80.0-94.0); MEAN CORPUSCULAR HEMOGLOBIN 29.9 pg (27.0-31.0); MEAN CORPUSCULAR HGB CONC 34.2 g/dL (33.0-37.0); MEAN PLATELET VOLUME 8.7 fL (7.2-11.7); MONO # 0.8 K/uL (0.0-0.8); MONO % 7.5 % (0.0-10.0); NEUT # 8.1 K/uL (1.8-7.0); NEUT % 75.9 % (50.0-75.0); NRBC % 0.1 % (0.0-2.0); RBC 5.19 Mil/uL (4.40-5.90); RED CELL DISTRIBUTION WIDTH 14.2 % (11.5-14.5); WHITE BLOOD COUNT 10.7 K/uL (4.8-10.8)
[2017-04-22 07:15] LABS: ALBUMIN 3.4 g/dL (3.5-5.0)
[2017-04-22 07:18] LABS: ALB/GLOB RATIO 1.2 (1.0-2.1); ALT/SGPT 39 U/L (21-72); AST/SGOT 29 U/L (17-59); BLOOD UREA NITROGEN 24 mg/dL (9-20); GFR AFRICAN-AMERICAN > 60; GFR NON-AFRICAN AMERICAN > 60
[2017-04-22 07:19] LABS: CALCIUM 8.4 mg/dl (8.6-10.4); MAGNESIUM 2.3 mg/dL (1.6-2.3)
--- NOTE | 2017-04-22 07:27 | CP.CCUPN ---
<Ly Blake - Last Filed: 04/22/17 17:21> CCU Subjective - Physician Review Subjective (Free Text): 04/22/17 16:52 Patient seen and examined at bedside. Patient was started on amiodarone gtt by Dr. Dawkins overnight and patient remained tachycardic 110-120s. Today, patient's HR is 90-110bpm. Patient is asymptomatic and denies any complaints of fever, chills, headache, dizziness, chest pain, palpitations, SOB , cough, abd pain, nausea, vomiting, diarrhea, urinary complaints, pain/ swelling in his legs b/l, pain at intervention site. Patient was complaining of some constipation. He was seen OOB to chair and is tolerating his diet. Patient will be changed to PO amiodarone later today. CCU Objective - Vital Signs / Intake & Output Vital Signs (Last 4 hours): Vital Signs Pulse Resp BP Pulse Ox 04/22/17 06:00 113 H 15 95 04/22/17 05:39 109 H 15 119/72 92 L 04/22/17 05:00 122 H 13 95 04/22/17 04:50 127 H 18 116/65 88 L 04/22/17 04:39 133 H 11 L 95/62 L 97 04/22/17 04:00 110 H 14 97 04/22/17 03:39 126 H 14 116/89 98 Intake and Output (Last 8hrs): Intake & Output 04/21/17 04/22/17 04/22/17 22:59 06:59 14:59 Intake Total 1306.6 840.0 Output Total 500 1400 Balance 806.6 -560.0 Weight 254 lb Intake: Intake, IV Amount 766.6 600.0 Left Antecubital 700 400 Left Distal Port 66.6 200.0 Antecubital Oral 540 240 Output: Urine 500 1400 Urine, Voided 500 1400 Other: # Bowel Movements 0 - Physical Exam Head: Positive for: Atraumatic, Normocephalic Pupils: Positive for: PERRL Extroacular Muscles: Positive for: EOMI Conjunctiva: Positive for: Normal. Negative for: Injected, Icteric Mouth: Positive for: Moist Mucous Membranes Neck: Positive for: Normal Range of Motion Respiratory/Chest: Positive for: Clear to Auscultation, Good Air Exchange. Negative for: Respiratory Distress, Accessory Muscle Use, Wheezes, Rales, Rhonchi Cardiovascular: Positive for: Normal S1, S2, Irregular Rhythm, Tachycardic. Negative for: Regular Rate and Rhythm Abdomen: Positive for: Normal Bowel Sounds. Negative for: Tenderness, Distention Upper Extremity: Positive for: Normal Inspection, NORMAL PULSES. Negative for: Cyanosis, Edema Lower Extremity: Positive for: Normal Inspection, Other (diminshed pulses b/l). Negative for: Edema Neurological: Positive for: CN II-XII Intact, Speech Normal Skin: Positive for: Warm, Dry, Normal Color Psychiatric: Positive for: Alert, Oriented x 3, Normal Insight, Normal Concentration - Medications Active Medications: Active Medications Generic Name Dose Route Start Last Admin Trade Name Freq PRN Reason Stop Dose Admin Aspirin 81 mg 04/19/17 10:00 04/21/17 11:43 Ecotrin PO Not Given DAILY [facility] Clopidogrel Bisulfate 75 mg 04/19/17 10:00 04/21/17 11:43 Plavix PO Not Given DAILY [facility] Diltiazem HCl 60 mg 04/19/17 01:00 04/22/17 05:03 Cardizem PO 60 mg Q6 NELY Administration Enoxaparin Sodium 80 mg 04/22/17 10:00 Lovenox SC Q12 NELY Amiodarone HCl 900 mg/ 500 mls @ 33.33 mls/hr 04/21/17 19:00 04/21/17 20:00 Dextrose IV 04/22/17 10:00 33.33 mls/hr .Q15H1M ONE Administration Protocol 1 MG/MIN Amiodarone HCl 900 mg/ 500 mls @ 16.66 mls/hr 04/22/17 01:00 04/22/17 02:00 Dextrose IV 04/23/17 00:59 16.66 mls/hr .Q24H ONE Administration Protocol 0.5 MG/MIN Losartan Potassium 25 mg 04/19/17 10:00 04/21/17 11:42 Cozaar PO Not Given DAILY [facility] Metoprolol Tartrate 25 mg 04/19/17 10:00 04/21/17 11:43 Lopressor PO Not Given DAILY [facility] Pantoprazole Sodium 40 mg 04/19/17 10:00 04/21/17 11:44 Protonix Ec Tab PO Not Given DAILY [facility] Rosuvastatin Calcium 5 mg 04/19/17 22:00 04/21/17 21:17 Crestor PO 5 mg HS NELY Administration Tramadol HCl 50 mg 04/18/17 22:00 04/21/17 21:17 Ultram PO 50 mg Q12 NELY Administration - Patient Studies Lab Studies: Microbiology Studies 04/20/17 14:27 MRSA Culture (Admit) - Final Nose MRSA NOT DETECTED Lab Studies 04/22/17 04/22/17 04/21/17 Range/Units 06:31 06:31 16:49 WBC 10.7 (4.8-10.8) K/uL RBC 5.19 (4.40-5.90) Mil/uL Hgb 15.5 (12.0-18.0) g/dL Hct 45.5 (35.0-51.0) % MCV 87.5 (80.0-94.0) fL MCH 29.9 (27.0-31.0) pg MCHC 34.2 (33.0-37.0) g/dL RDW 14.2 (11.5-14.5) % Plt Count 175 (130-400) K/uL MPV 8.7 (7.2-11.7) fL Neut % (Auto) 75.9 H (50.0-75.0) % Lymph % (Auto) 16.5 L (20.0-40.0) % Frederick % (Auto) 7.5 (0.0-10.0) % Eos % (Auto) 0.0 (0.0-4.0) % Baso % (Auto) 0.1 (0.0-2.0) % Neut # 8.1 H (1.8-7.0) K/uL Lymph # 1.8 (1.0-4.3) K/uL Frederick # 0.8 (0.0-0.8) K/uL Eos # 0.0 (0.0-0.7) K/uL Baso # 0.0 (0.0-0.2) K/uL Sodium 135 (132-148) mmol/L Potassium 4.2 (3.6-5.2) mmol/L Chloride 103 (98-107) mmol/L Carbon Dioxide 22 (22-30) mmol/L Anion Gap 14 (10-20) BUN 24 H (9-20) mg/dL Creatinine 0.9 (0.8-1.5) MG/DL Est GFR ( Amer) > 60 Est GFR (Non-Af Amer) > 60 POC Glucose (mg/dL) 112 H (65-110) mg/dL Random Glucose 122 H (75-110) mg/dL Calcium 8.4 L (8.6-10.4) mg/dl Phosphorus 3.5 (2.5-4.5) mg/dL Magnesium 2.3 (1.6-2.3) mg/dL Total Bilirubin 2.7 H (0.2-1.3) mg/dL AST 29 (17-59) U/L ALT 39 (21-72) U/L Alkaline Phosphatase 58 (38-126) U/L Total Protein 6.2 L (6.3-8.3) g/dL Albumin 3.4 L (3.5-5.0) g/dL Globulin 2.8 (2.2-3.9) gm/dL Albumin/Globulin Ratio 1.2 (1.0-2.1) Laboratory Results - last 24 hr 04/21/17 04/22/17 04/22/17 16:49 06:31 06:31 WBC 10.7 RBC 5.19 Hgb 15.5 Hct 45.5 MCV 87.5 MCH 29.9 MCHC 34.2 RDW 14.2 Plt Count 175 MPV 8.7 Neut % (Auto) 75.9 H Lymph % (Auto) 16.5 L Frederick % (Auto) 7.5 Eos % (Auto) 0.0 Baso % (Auto) 0.1 Neut # 8.1 H Lymph # 1.8 Frederick # 0.8 Eos # 0.0 Baso # 0.0 Sodium 135 Potassium 4.2 Chloride 103 Carbon Dioxide 22 Anion Gap 14 BUN 24 H Creatinine 0.9 Est GFR ( Amer) > 60 Est GFR (Non-Af Amer) > 60 POC Glucose (mg/dL) 112 H Random Glucose 122 H Calcium 8.4 L Phosphorus 3.5 Magnesium 2.3 Total Bilirubin 2.7 H AST 29 ALT 39 Alkaline Phosphatase 58 Total Protein 6.2 L Albumin 3.4 L Globulin 2.8 Albumin/Globulin Ratio 1.2 Fingerstick Blood Sugar Results: 112 Review of Systems - Constitutional Constitutional: absent: Fever, Chills - EENT Eyes: As Per HPI. absent: Change in Vision Ears: As Per HPI. absent: Tinnitus, Dizziness Nose/Mouth/Throat: As Per HPI. absent: Sore Throat - Cardiovascular Cardiovascular: As Per HPI, Irregular Heart Rhythm. absent: Chest Pain, Dyspnea , Dyspnea on Exertion - Respiratory Respiratory: As Per HPI. absent: Cough, Dyspnea on Exertion, Wheezing - Gastrointestinal Gastrointestinal: As Per HPI, Constipation. absent: Abdominal Pain, Diarrhea, Nausea, Vomiting - Genitourinary Genitourinary: As Per HPI. absent: Dysuria, Hematuria - Musculoskeletal Musculoskeletal: As Par HPI. absent: Numbness, Tingling - Integumentary Integumentary: As Per HPI. absent: Rash - Neurological Neurological: As Per HPI. absent: Dizziness, Headaches - Psychiatric Psychiatric: As Per HPI. absent: Anxiety, Depression - Endocrine Endocrine: As Per HPI. absent: Palpitations, Polydipsia, Polyphagia, Polyuria Critical Care Progress Note - Nutrition Nutrition: Nutrition Category Date Time Status Heart Healthy Diet [DIET] Diets 04/21/17 Dinner Active Assessment/Plan - Assessment and Plan (Free Text) Assessment: 61 y/o M with PMH of HTN, GERD, [place] with stent placed 2014, CAD with stent placement, and chronic back pain presented initially to the ED on 04/18/2017 for palpitations and chest pain Plan: Neurology -AO x 3 -no acute issues Cardiovascular -troponin: 0.132--> 0.2300--> 0.1530--> 0.093 -no acute ST elevations on EKG; Afib with RVR -s/p VAUGHN of RCA this AM 04/21 -s/p cardiac cath this AM with Dr Hazel 1. L Main: Distal 20% 2. LAD: Distal 30% 3. L Cx: 100% occluded 4. RCA: Distal 80% 5. EF: 65%, EDP 18 -Echocardiogram shows normal EF, no regional wall abnormalities, and normal LV function -patient currently on amiodarone gtt as per cardiology - will be switched to amiodarone 200mg po daily when HR is 90-100bpm -ASA 81mg po daily -Plavix 75mg po daily -Cardizem 60mg po q6 -Cozaar 25mg po daily -Lopressor 25mg po daily -Lovenox 80mg sc q12 -Crestor 5mg po hs -Ultram 50mg po q12 -Dr Hazel cardio following -Dr Dawkins cardio following Respiratory -no acute issues -breathing spontaneously on 2L NC GI -constipation -Colace 100mg po bid -Miralax one time Renal -no acute issues Heme -no acute issues MSK -no acute issues ID -no acute issues DVT ppx: Lovenox 80mg sc q12; SCD c/i after VAUGHN insertion GI ppx: Protonix 40mg po daily Code status: full code Case discussed with Dr. Bonilla Blake PGY2 <Timmy Crystal - Last Filed: 04/22/17 18:24> CCU Objective - Vital Signs / Intake & Output Vital Signs (Last 4 hours): Vital Signs Temp Pulse Resp BP Pulse Ox 04/22/17 17:00 107 H 11 L 95 04/22/17 16:39 112 H 12 111/65 04/22/17 16:00 98.3 F 109 H 12 98 04/22/17 15:39 97 H 13 105/77 95 04/22/17 15:00 97 H 12 93 L 04/22/17 14:39 93 H 17 107/78 94 L Intake and Output (Last 8hrs): Intake & Output 04/22/17 04/22/17 04/22/17 06:59 14:59 22:59 Intake Total 840.0 783.6 350.1 Output Total 1400 650 500 Balance -560.0 133.6 -149.9 Weight 254 lb 253 lb Intake: Intake, IV Amount 600.0 133.6 50.1 Left Antecubital 400 Left Distal Port 200.0 133.6 50.1 Antecubital Oral 240 650 300 Output: Urine 1400 650 500 Urine, Voided 1400 650 500 Other: # Bowel Movements 0 0 - Medications Active Medications: Active Medications Generic Name Dose Route Start Last Admin Trade Name Freq PRN Reason Stop Dose Admin Aspirin 81 mg 04/19/17 10:00 04/22/17 09:07 Ecotrin PO 81 mg DAILY NELY Administration Clopidogrel Bisulfate 75 mg 04/19/17 10:00 04/22/17 09:08 Plavix PO 75 mg DAILY NELY Administration Diltiazem HCl 60 mg 04/19/17 01:00 04/22/17 17:29 Cardizem PO 60 mg Q6 NELY Administration Docusate Sodium 100 mg 04/22/17 11:00 04/22/17 17:29 Colace PO 100 mg BID NELY Administration Enoxaparin Sodium 80 mg 04/22/17 10:00 04/22/17 09:11 Lovenox SC 80 mg Q12 NELY Administration Amiodarone HCl 900 mg/ 500 mls @ 16.66 mls/hr 04/22/17 01:00 04/22/17 02:00 Dextrose IV 04/23/17 00:59 16.66 mls/hr .Q24H ONE Administration Protocol 0.5 MG/MIN Losartan Potassium 25 mg 04/19/17 10:00 04/22/17 09:07 Cozaar PO 25 mg DAILY NELY Administration Metoprolol Tartrate 25 mg 04/19/17 10:00 04/22/17 09:07 Lopressor PO 25 mg DAILY NELY Administration Pantoprazole Sodium 40 mg 04/19/17 10:00 04/22/17 09:08 Protonix Ec Tab PO 40 mg DAILY NELY Administration Rosuvastatin Calcium 5 mg 04/19/17 22:00 04/21/17 21:17 Crestor PO 5 mg HS NELY Administration Tramadol HCl 50 mg 04/18/17 22:00 04/22/17 09:08 Ultram PO 50 mg Q12 NELY Administration - Patient Studies Lab Studies: Microbiology Studies 04/20/17 14:27 MRSA Culture (Admit) - Final Nose MRSA NOT DETECTED Lab Studies 04/22/17 04/22/17 Range/Units 06:31 06:31 WBC 10.7 (4.8-10.8) K/uL RBC 5.19 (4.40-5.90) Mil/uL Hgb 15.5 (12.0-18.0) g/dL Hct 45.5 (35.0-51.0) % MCV 87.5 (80.0-94.0) fL MCH 29.9 (27.0-31.0) pg MCHC 34.2 (33.0-37.0) g/dL RDW 14.2 (11.5-14.5) % Plt Count 175 (130-400) K/uL MPV 8.7 (7.2-11.7) fL Neut % (Auto) 75.9 H (50.0-75.0) % Lymph % (Auto) 16.5 L (20.0-40.0) % Frederick % (Auto) 7.5 (0.0-10.0) % Eos % (Auto) 0.0 (0.0-4.0) % Baso % (Auto) 0.1 (0.0-2.0) % Neut # 8.1 H (1.8-7.0) K/uL Lymph # 1.8 (1.0-4.3) K/uL Frederick # 0.8 (0.0-0.8) K/uL Eos # 0.0 (0.0-0.7) K/uL Baso # 0.0 (0.0-0.2) K/uL Sodium 135 (132-148) mmol/L Potassium 4.2 (3.6-5.2) mmol/L Chloride 103 (98-107) mmol/L Carbon Dioxide 22 (22-30) mmol/L Anion Gap 14 (10-20) BUN 24 H (9-20) mg/dL Creatinine 0.9 (0.8-1.5) MG/DL Est GFR ( Amer) > 60 Est GFR (Non-Af Amer) > 60 Random Glucose 122 H (75-110) mg/dL Calcium 8.4 L (8.6-10.4) mg/dl Phosphorus 3.5 (2.5-4.5) mg/dL Magnesium 2.3 (1.6-2.3) mg/dL Total Bilirubin 2.7 H (0.2-1.3) mg/dL AST 29 (17-59) U/L ALT 39 (21-72) U/L Alkaline Phosphatase 58 (38-126) U/L Total Protein 6.2 L (6.3-8.3) g/dL Albumin 3.4 L (3.5-5.0) g/dL Globulin 2.8 (2.2-3.9) gm/dL Albumin/Globulin Ratio 1.2 (1.0-2.1) Laboratory Results - last 24 hr 04/22/17 04/22/17 06:31 06:31 WBC 10.7 RBC 5.19 Hgb 15.5 Hct 45.5 MCV 87.5 MCH 29.9 MCHC 34.2 RDW 14.2 Plt Count 175 MPV 8.7 Neut % (Auto) 75.9 H Lymph % (Auto) 16.5 L Frederick % (Auto) 7.5 Eos % (Auto) 0.0 Baso % (Auto) 0.1 Neut # 8.1 H Lymph # 1.8 Frederick # 0.8 Eos # 0.0 Baso # 0.0 Sodium 135 Potassium 4.2 Chloride 103 Carbon Dioxide 22 Anion Gap 14 BUN 24 H Creatinine 0.9 Est GFR ( Amer) > 60 Est GFR (Non-Af Amer) > 60 Random Glucose 122 H Calcium 8.4 L Phosphorus 3.5 Magnesium 2.3 Total Bilirubin 2.7 H AST 29 ALT 39 Alkaline Phosphatase 58 Total Protein 6.2 L Albumin 3.4 L Globulin 2.8 Albumin/Globulin Ratio 1.2 Critical Care Progress Note - Nutrition Nutrition: Nutrition Category Date Time Status Heart Healthy Diet [DIET] Diets 04/21/17 Dinner Active Attending/Attestation - Attestation I have personally seen and examined this patient.: Yes I have fully participated in the care of the patient.: Yes I have reviewed all pertinent clinical information: Yes Notes (Text): 04/22/17 18:24 Today: March The Patient was seen and examined at the bedside, Medical records reviewed, all clinical/lab/hemodynamic/radiographic data were reviewed and management issues were discussed and formulated, Events reviewed Pain issues, skin care, head of the bed elevation, glycemic control were addressed. Agree with above treatment plans as transcribed in Dr. Modi note
[2017-04-22] MEDS: Pantoprazole 40 mg EC Tab PO SCH (09:08)
[2017-04-22] MEDS: Enoxaparin 80 mg Syringe SC SCH ×2 (09:11→21:21)
--- NOTE | 2017-04-22 11:12 | CP.PCM.PN ---
Subjective - Date & Time of Evaluation Date of Evaluation: 04/22/17 Time of Evaluation: 12:40 - Subjective Subjective: clinically same Objective - Vital Signs/Intake and Output Vital Signs (last 24 hours): Temp Pulse Resp BP Pulse Ox 98.5 F 136 H 15 128/68 93 L 04/22/17 08:00 04/22/17 10:00 04/22/17 10:00 04/22/17 09:39 04/22/17 10:00 Intake and Output: 04/22/17 04/22/17 06:59 18:59 Intake Total 1546.6 366.8 Output Total 1900 300 Balance -353.4 66.8 - Medications Medications: Current Medications Aspirin (Ecotrin) 81 mg PO DAILY [facility] Last Admin: 04/22/17 09:07 Dose: 81 mg Clopidogrel Bisulfate (Plavix) 75 mg PO DAILY [facility] Last Admin: 04/22/17 09:08 Dose: 75 mg Diltiazem HCl (Cardizem) 60 mg PO Q6 [facility] Last Admin: 04/22/17 05:03 Dose: 60 mg Docusate Sodium (Colace) 100 mg PO BID [facility] Last Admin: 04/22/17 11:01 Dose: 100 mg Enoxaparin Sodium (Lovenox) 80 mg SC Q12 [facility] Last Admin: 04/22/17 09:11 Dose: 80 mg Amiodarone HCl 900 mg/ (Dextrose) 500 mls @ 16.66 mls/hr IV .Q24H ONE; 0.5 MG/ MIN PRN Reason: Protocol Stop: 04/23/17 00:59 Last Admin: 04/22/17 02:00 Dose: 16.66 mls/hr Losartan Potassium (Cozaar) 25 mg PO DAILY [facility] Last Admin: 04/22/17 09:07 Dose: 25 mg Metoprolol Tartrate (Lopressor) 25 mg PO DAILY [facility] Last Admin: 04/22/17 09:07 Dose: 25 mg Pantoprazole Sodium (Protonix Ec Tab) 40 mg PO DAILY [facility] Last Admin: 04/22/17 09:08 Dose: 40 mg Rosuvastatin Calcium (Crestor) 5 mg PO HS [facility] Last Admin: 04/21/17 21:17 Dose: 5 mg Tramadol HCl (Ultram) 50 mg PO Q12 [facility] Last Admin: 04/22/17 09:08 Dose: 50 mg - Labs Labs: 04/22/17 06:31 04/22/17 06:31 PT 14.6 SECONDS (9.7-12.2) H 04/20/17 07:02 INR 1.3 04/20/17 07:02 APTT 28 SECONDS (21-34) 04/18/17 11:24 - Constitutional Appears: Well - Head Exam Head Exam: ATRAUMATIC, NORMAL INSPECTION, NORMOCEPHALIC - Eye Exam Eye Exam: EOMI, Normal appearance, PERRL Pupil Exam: NORMAL ACCOMODATION, PERRL - ENT Exam ENT Exam: Mucous Membranes Moist, Normal Exam - Neck Exam Neck Exam: Full ROM, Normal Inspection. absent: Lymphadenopathy - Respiratory Exam Respiratory Exam: Decreased Breath Sounds - Cardiovascular Exam Cardiovascular Exam: REGULAR RHYTHM, +S1, +S2 - GI/Abdominal Exam GI & Abdominal Exam: Soft, Diminished Bowel Sounds - Rectal Exam Rectal Exam: Deferred
--- NOTE | 2017-04-22 12:44 | CP.PCM.PN ---
Subjective - Date & Time of Evaluation Date of Evaluation: 04/22/17 Time of Evaluation: 12:40 - Subjective Subjective: Progress note for Dr. Dawkins Pt seen and examined at bedside. Overnight, pt was found to be tachycardic with HR up to 160's. Pt was started on amiodarone drip along with cardizem PO. This morning pt's HR dropped to 90's. Denies CP, SOB, N/V/D. Objective - Vital Signs/Intake and Output Vital Signs (last 24 hours): Temp Pulse Resp BP Pulse Ox 97.6 F 99 H 13 115/77 95 04/22/17 12:00 04/22/17 12:00 04/22/17 12:00 04/22/17 11:39 04/22/17 12:00 Intake and Output: 04/22/17 04/22/17 06:59 18:59 Intake Total 1546.6 450.2 Output Total 1900 300 Balance -353.4 150.2 - Medications Medications: Current Medications Aspirin (Ecotrin) 81 mg PO DAILY [facility] Last Admin: 04/22/17 09:07 Dose: 81 mg Clopidogrel Bisulfate (Plavix) 75 mg PO DAILY [facility] Last Admin: 04/22/17 09:08 Dose: 75 mg Diltiazem HCl (Cardizem) 60 mg PO Q6 [facility] Last Admin: 04/22/17 12:22 Dose: 60 mg Docusate Sodium (Colace) 100 mg PO BID [facility] Last Admin: 04/22/17 11:01 Dose: 100 mg Enoxaparin Sodium (Lovenox) 80 mg SC Q12 [facility] Last Admin: 04/22/17 09:11 Dose: 80 mg Amiodarone HCl 900 mg/ (Dextrose) 500 mls @ 16.66 mls/hr IV .Q24H ONE; 0.5 MG/ MIN PRN Reason: Protocol Stop: 04/23/17 00:59 Last Admin: 04/22/17 02:00 Dose: 16.66 mls/hr Losartan Potassium (Cozaar) 25 mg PO DAILY [facility] Last Admin: 04/22/17 09:07 Dose: 25 mg Metoprolol Tartrate (Lopressor) 25 mg PO DAILY [facility] Last Admin: 04/22/17 09:07 Dose: 25 mg Pantoprazole Sodium (Protonix Ec Tab) 40 mg PO DAILY [facility] Last Admin: 04/22/17 09:08 Dose: 40 mg Rosuvastatin Calcium (Crestor) 5 mg PO HS [facility] Last Admin: 04/21/17 21:17 Dose: 5 mg Tramadol HCl (Ultram) 50 mg PO Q12 [facility] Last Admin: 04/22/17 09:08 Dose: 50 mg - Labs Labs: 04/22/17 06:31 04/22/17 06:31 PT 14.6 SECONDS (9.7-12.2) H 04/20/17 07:02 INR 1.3 04/20/17 07:02 APTT 28 SECONDS (21-34) 04/18/17 11:24 - Constitutional Appears: Well, No Acute Distress - Head Exam Head Exam: ATRAUMATIC, NORMAL INSPECTION, NORMOCEPHALIC - Respiratory Exam Respiratory Exam: Clear to Ausculation Bilateral, NORMAL BREATHING PATTERN - Cardiovascular Exam Cardiovascular Exam: Tachycardia, +S1, +S2 - GI/Abdominal Exam GI & Abdominal Exam: Soft, Normal Bowel Sounds. absent: Tenderness - Extremities Exam Extremities Exam: absent: Calf Tenderness, Pedal Edema - Neurological Exam Neurological Exam: Alert, Awake, Oriented x3 - Skin Skin Exam: Intact, Normal Color, Warm Assessment and Plan (1) Chest pain Assessment & Plan: Pt underwent successful PCI of of RCA with VAUGHN Left circumflex artery was unable to be stented ASA 81 mg and Plavix 75 mg daily Will increase dose of cardizem if heart rate continues to be elevated Status: Acute
[2017-04-22] MEDS ORDERED: POLYETHYLENE GLYCOL 3350 17 GM/Dose PACKET PO ONE (17:10)
--- NOTE | 2017-04-22 21:40 | CP.PCM.PN ---
Subjective - Date & Time of Evaluation Date of Evaluation: 04/22/17 Time of Evaluation: 10:05 - Subjective Subjective: Patient seen and evaluated Denies chest pain and dyspnea Objective - Vital Signs/Intake and Output Vital Signs (last 24 hours): Temp Pulse Resp BP Pulse Ox 98.3 F 110 H 10 L 109/61 96 04/22/17 20:00 04/22/17 21:00 04/22/17 21:00 04/22/17 20:39 04/22/17 21:00 Intake and Output: 04/22/17 04/23/17 18:59 06:59 Intake Total 1400.4 150.1 Output Total 1650 0 Balance -249.6 150.1 - Medications Medications: Current Medications Aspirin (Ecotrin) 81 mg PO DAILY [facility] Last Admin: 04/22/17 09:07 Dose: 81 mg Clopidogrel Bisulfate (Plavix) 75 mg PO DAILY [facility] Last Admin: 04/22/17 09:08 Dose: 75 mg Diltiazem HCl (Cardizem) 60 mg PO Q6 [facility] Last Admin: 04/22/17 17:29 Dose: 60 mg Docusate Sodium (Colace) 100 mg PO BID [facility] Last Admin: 04/22/17 17:29 Dose: 100 mg Enoxaparin Sodium (Lovenox) 80 mg SC Q12 [facility] Last Admin: 04/22/17 21:21 Dose: 80 mg Amiodarone HCl 900 mg/ (Dextrose) 500 mls @ 16.66 mls/hr IV .Q24H ONE; 0.5 MG/ MIN PRN Reason: Protocol Stop: 04/23/17 00:59 Last Admin: 04/22/17 02:00 Dose: 16.66 mls/hr Losartan Potassium (Cozaar) 25 mg PO DAILY [facility] Last Admin: 04/22/17 09:07 Dose: 25 mg Metoprolol Tartrate (Lopressor) 25 mg PO DAILY [facility] Last Admin: 04/22/17 09:07 Dose: 25 mg Pantoprazole Sodium (Protonix Ec Tab) 40 mg PO DAILY [facility] Last Admin: 04/22/17 09:08 Dose: 40 mg Rosuvastatin Calcium (Crestor) 5 mg PO HS [facility] Last Admin: 04/22/17 21:21 Dose: 5 mg Tramadol HCl (Ultram) 50 mg PO Q12 [facility] Last Admin: 04/22/17 09:08 Dose: 50 mg - Labs Labs: 04/22/17 06:31 04/22/17 06:31 PT 14.6 SECONDS (9.7-12.2) H 04/20/17 07:02 INR 1.3 04/20/17 07:02 APTT 28 SECONDS (21-34) 04/18/17 11:24
[2017-04-23 06:42] LABS: BASO % 0.2 % (0.0-2.0); EOS % 0.1 % (0.0-4.0); LYMPH # 1.9 K/uL (1.0-4.3); LYMPH % 16.9 % (20.0-40.0); MEAN CELL VOLUME 88.5 fL (80.0-94.0); MEAN CORPUSCULAR HEMOGLOBIN 29.3 pg (27.0-31.0); MEAN CORPUSCULAR HGB CONC 33.1 g/dL (33.0-37.0); MEAN PLATELET VOLUME 8.5 fL (7.2-11.7); MONO # 0.8 K/uL (0.0-0.8); MONO % 6.8 % (0.0-10.0); NEUT # 8.7 K/uL (1.8-7.0); NRBC % 0.1 % (0.0-2.0); RBC 5.12 Mil/uL (4.40-5.90); RED CELL DISTRIBUTION WIDTH 14.4 % (11.5-14.5); WHITE BLOOD COUNT 11.5 K/uL (4.8-10.8)
[2017-04-23 06:49] LABS: ALBUMIN 3.4 g/dL (3.5-5.0)
[2017-04-23 06:52] LABS: ALT/SGPT 58 U/L (21-72); AST/SGOT 30 U/L (17-59); BLOOD UREA NITROGEN 20 mg/dL (9-20); GFR AFRICAN-AMERICAN > 60; GFR NON-AFRICAN AMERICAN > 60
[2017-04-23 06:53] LABS: CALCIUM 8.2 mg/dl (8.6-10.4); MAGNESIUM 2.2 mg/dL (1.6-2.3)
[2017-04-23 07:03] LABS: ALB/GLOB RATIO 1.3 (1.0-2.1)
--- NOTE | 2017-04-23 07:37 | CP.CCUPN ---
<Ly Blake - Last Filed: 04/23/17 14:04> CCU Subjective - Physician Review Subjective (Free Text): 04/23/17 14:04 Patient seen and examined OOB to chair with family at bedside. HR controlled in 60s overnight and during the day today. Patient is asymptomatic and denies any fever, chills, headache, dizziness, chest pain, palpitations, SOB, cough, abd pain, nausea, vomiting, diarrhea, urinary complaints, pain/swelling in his legs b/l, pain at intervention site. Patient continues complaining of constipation. CCU Objective - Vital Signs / Intake & Output Vital Signs (Last 4 hours): Vital Signs Temp Pulse Resp BP Pulse Ox 04/23/17 06:00 64 12 94 L 04/23/17 05:39 65 13 112/76 95 04/23/17 05:00 78 15 97 04/23/17 04:39 61 13 108/69 93 L 04/23/17 04:00 98 F 66 13 94 L Intake and Output (Last 8hrs): Intake & Output 04/22/17 04/23/17 04/23/17 22:59 06:59 14:59 Intake Total 833.6 233.4 Output Total 1200 200 Balance -366.4 33.4 Weight 240 lb Intake: Intake, IV Amount 133.6 33.4 Left Distal Port 133.6 33.4 Antecubital Oral 700 200 Output: Urine 1200 200 Urine, Voided 1200 200 Other: # Bowel Movements 0 0 - Physical Exam Head: Positive for: Atraumatic, Normocephalic Pupils: Positive for: PERRL Extroacular Muscles: Positive for: EOMI Conjunctiva: Positive for: Normal. Negative for: Injected, Icteric Mouth: Positive for: Moist Mucous Membranes Neck: Positive for: Normal Range of Motion Respiratory/Chest: Positive for: Clear to Auscultation, Good Air Exchange. Negative for: Respiratory Distress, Accessory Muscle Use, Wheezes, Rales, Rhonchi Cardiovascular: Positive for: Normal S1, S2, Irregular Rhythm. Negative for: Regular Rate and Rhythm, Tachycardic, Bradycardic Abdomen: Positive for: Normal Bowel Sounds. Negative for: Tenderness, Distention Upper Extremity: Positive for: Normal Inspection, NORMAL PULSES. Negative for: Cyanosis, Edema Lower Extremity: Positive for: Normal Inspection, Other (diminshed pulses b/l). Negative for: Edema Neurological: Positive for: CN II-XII Intact, Speech Normal Skin: Positive for: Warm, Dry, Normal Color Psychiatric: Positive for: Alert, Oriented x 3, Normal Insight, Normal Concentration - Medications Active Medications: Active Medications Generic Name Dose Route Start Last Admin Trade Name Freq PRN Reason Stop Dose Admin Amiodarone HCl 200 mg 04/22/17 23:45 04/23/17 04:59 Cordarone PO 200 mg BID NELY Administration Aspirin 81 mg 04/19/17 10:00 04/22/17 09:07 Ecotrin PO 81 mg DAILY NELY Administration Clopidogrel Bisulfate 75 mg 04/19/17 10:00 04/22/17 09:08 Plavix PO 75 mg DAILY NELY Administration Diltiazem HCl 60 mg 04/19/17 01:00 04/23/17 06:22 Cardizem PO 60 mg Q6 NELY Administration Docusate Sodium 100 mg 04/22/17 11:00 04/22/17 17:29 Colace PO 100 mg BID NELY Administration Enoxaparin Sodium 80 mg 04/22/17 10:00 04/22/17 21:21 Lovenox SC 80 mg Q12 NELY Administration Losartan Potassium 25 mg 04/19/17 10:00 04/22/17 09:07 Cozaar PO 25 mg DAILY NELY Administration Metoprolol Tartrate 25 mg 04/19/17 10:00 04/22/17 09:07 Lopressor PO 25 mg DAILY NELY Administration Pantoprazole Sodium 40 mg 04/19/17 10:00 04/22/17 09:08 Protonix Ec Tab PO 40 mg DAILY NELY Administration Rosuvastatin Calcium 5 mg 04/19/17 22:00 04/22/17 21:21 Crestor PO 5 mg HS NELY Administration Tramadol HCl 50 mg 04/18/17 22:00 04/22/17 21:45 Ultram PO 50 mg Q12 NELY Administration - Patient Studies Lab Studies: Lab Studies 04/23/17 04/23/17 Range/Units 06:22 06:22 WBC 11.5 H (4.8-10.8) K/uL RBC 5.12 (4.40-5.90) Mil/uL Hgb 15.0 (12.0-18.0) g/dL Hct 45.3 (35.0-51.0) % MCV 88.5 (80.0-94.0) fL MCH 29.3 (27.0-31.0) pg MCHC 33.1 (33.0-37.0) g/dL RDW 14.4 (11.5-14.5) % Plt Count 164 (130-400) K/uL MPV 8.5 (7.2-11.7) fL Neut % (Auto) 76.0 H (50.0-75.0) % Lymph % (Auto) 16.9 L (20.0-40.0) % [place] % (Auto) 6.8 (0.0-10.0) % Eos % (Auto) 0.1 (0.0-4.0) % Baso % (Auto) 0.2 (0.0-2.0) % Neut # 8.7 H (1.8-7.0) K/uL Lymph # 1.9 (1.0-4.3) K/uL [place] # 0.8 (0.0-0.8) K/uL Eos # 0.0 (0.0-0.7) K/uL Baso # 0.0 (0.0-0.2) K/uL Sodium 133 (132-148) mmol/L Potassium 4.1 (3.6-5.2) mmol/L Chloride 101 (98-107) mmol/L Carbon Dioxide 21 L (22-30) mmol/L Anion Gap 15 (10-20) BUN 20 (9-20) mg/dL Creatinine 1.0 (0.8-1.5) MG/DL Est GFR ( Amer) > 60 Est GFR (Non-Af Amer) > 60 Random Glucose 107 (75-110) mg/dL Calcium 8.2 L (8.6-10.4) mg/dl Phosphorus 3.3 (2.5-4.5) mg/dL Magnesium 2.2 (1.6-2.3) mg/dL Total Bilirubin 2.9 H (0.2-1.3) mg/dL AST 30 (17-59) U/L ALT 58 (21-72) U/L Alkaline Phosphatase 60 (38-126) U/L Total Protein 6.1 L (6.3-8.3) g/dL Albumin 3.4 L (3.5-5.0) g/dL Globulin 2.7 (2.2-3.9) gm/dL Albumin/Globulin Ratio 1.3 (1.0-2.1) Laboratory Results - last 24 hr 04/23/17 04/23/17 06:22 06:22 WBC 11.5 H RBC 5.12 Hgb 15.0 Hct 45.3 MCV 88.5 MCH 29.3 MCHC 33.1 RDW 14.4 Plt Count 164 MPV 8.5 Neut % (Auto) 76.0 H Lymph % (Auto) 16.9 L [place] % (Auto) 6.8 Eos % (Auto) 0.1 Baso % (Auto) 0.2 Neut # 8.7 H Lymph # 1.9 [place] # 0.8 Eos # 0.0 Baso # 0.0 Sodium 133 Potassium 4.1 Chloride 101 Carbon Dioxide 21 L Anion Gap 15 BUN 20 Creatinine 1.0 Est GFR ( Amer) > 60 Est GFR (Non-Af Amer) > 60 Random Glucose 107 Calcium 8.2 L Phosphorus 3.3 Magnesium 2.2 Total Bilirubin 2.9 H AST 30 ALT 58 Alkaline Phosphatase 60 Total Protein 6.1 L Albumin 3.4 L Globulin 2.7 Albumin/Globulin Ratio 1.3 Fingerstick Blood Sugar Results: 112 Review of Systems - Constitutional Constitutional: absent: Fever, Chills - EENT Eyes: As Per HPI. absent: Blurred Vision Ears: As Per HPI. absent: Tinnitus, Dizziness Nose/Mouth/Throat: As Per HPI. absent: Sore Throat - Cardiovascular Cardiovascular: As Per HPI. absent: Chest Pain, Dyspnea, Palpitations - Respiratory Respiratory: As Per HPI. absent: Cough, Dyspnea, Chest Congestion - Gastrointestinal Gastrointestinal: As Per HPI, Constipation. absent: Abdominal Pain, Diarrhea, Nausea, Vomiting - Genitourinary Genitourinary: As Per HPI. absent: Dysuria, Hematuria - Musculoskeletal Musculoskeletal: As Par HPI, Myalgias. absent: Numbness, Tingling - Integumentary Integumentary: As Per HPI. absent: Rash - Neurological Neurological: As Per HPI. absent: Numbness, Tingling, Weakness - Psychiatric Psychiatric: As Per HPI. absent: Anxiety, Depression - Endocrine Endocrine: As Per HPI. absent: Palpitations, Polydipsia, Polyphagia, Polyuria - Hematologic/Lymphatic Hematologic: As Per HPI. absent: Easy Bleeding, Easy Bruising, Lymphadenopathy Critical Care Progress Note - Nutrition Nutrition: Nutrition Category Date Time Status Heart Healthy Diet [DIET] Diets 04/21/17 Dinner Active Assessment/Plan - Assessment and Plan (Free Text) Assessment: 61 y/o M with PMH of HTN, GERD, [place] with stent placed 2014, CAD with stent placement, and chronic back pain presented initially to the ED on 04/18/2017 for palpitations and chest pain Plan: Neurology -AO x 3 -no acute issues Cardiovascular -s/p VAUGHN of RCA 04/21 -s/p cardiac cath this AM with Dr Hazel 1. L Main: Distal 20% 2. LAD: Distal 30% 3. L Cx: 100% occluded 4. RCA: Distal 80% 5. EF: 65%, EDP 18 -troponin: 0.132--> 0.2300--> 0.1530--> 0.093 -no acute ST elevations on EKG: Afib with RVR -Echocardiogram shows normal EF, no regional wall abnormalities, and normal LV function -ASA 81mg po daily -Plavix 75mg po daily -Amiodarone 200mg po bid -Cardizem 60mg po q6 -Cozaar 25mg po daily -Lopressor 25mg po daily -Lovenox 80mg sc q12 -Crestor 5mg po hs -Ultram 50mg po q12 -Dr Hazel cardio following -Dr Dawkins cardio following Respiratory -no acute issues -breathing spontaneously on 2L NC GI -constipation -Colace 100mg po bid -Miralax one time Renal -no acute issues Heme -no acute issues MSK -no acute issues ID -no acute issues DVT ppx: Lovenox 80mg sc q12; SCD c/i after VAUGHN insertion GI ppx: Protonix 40mg po daily Code status: full code Case discussed with Dr. Magen Blake PGY2 <Jesse Us - Last Filed: 04/23/17 19:34> CCU Objective - Vital Signs / Intake & Output Vital Signs (Last 4 hours): Vital Signs Temp Pulse Resp BP Pulse Ox 04/23/17 18:00 57 L 14 110/67 98 04/23/17 17:00 58 L 16 102/72 98 04/23/17 16:00 98.2 F 56 L 14 118/79 96 Intake and Output (Last 8hrs): Intake & Output 04/23/17 04/23/17 04/23/17 06:59 14:59 22:59 Intake Total 233.4 650 300 Output Total 200 775 400 Balance 33.4 -125 -100 Weight 240 lb 240 lb Intake: Intake, IV Amount 33.4 Left Distal Port 33.4 Antecubital Oral 200 650 300 Output: Urine 200 775 400 Urine, Voided 200 775 400 Other: # Voids Urine, Voided 1 # Bowel Movements 0 - Medications Active Medications: Active Medications Generic Name Dose Route Start Last Admin Trade Name Freq PRN Reason Stop Dose Admin Amiodarone HCl 200 mg 04/22/17 23:45 04/23/17 09:39 Cordarone PO 200 mg BID NELY Administration Aspirin 81 mg 04/19/17 10:00 04/23/17 09:39 Ecotrin PO 81 mg DAILY NELY Administration Clopidogrel Bisulfate 75 mg 04/19/17 10:00 04/23/17 09:38 Plavix PO 75 mg DAILY NELY Administration Diltiazem HCl 60 mg 04/19/17 01:00 04/23/17 17:37 Cardizem PO Not Given Q6 NELY Docusate Sodium 100 mg 04/22/17 11:00 04/23/17 17:36 Colace PO 100 mg BID NELY Administration Enoxaparin Sodium 80 mg 04/22/17 10:00 04/23/17 10:00 Lovenox SC 80 mg Q12 NELY Administration Losartan Potassium 25 mg 04/19/17 10:00 04/23/17 09:39 Cozaar PO 25 mg DAILY NELY Administration Metoprolol Tartrate 25 mg 04/19/17 10:00 04/23/17 09:40 Lopressor PO 25 mg DAILY NELY Administration Pantoprazole Sodium 40 mg 04/19/17 10:00 04/23/17 09:38 Protonix Ec Tab PO 40 mg DAILY NELY Administration Rosuvastatin Calcium 5 mg 04/19/17 22:00 04/22/17 21:21 Crestor PO 5 mg HS NELY Administration Tramadol HCl 50 mg 04/18/17 22:00 04/23/17 09:38 Ultram PO 50 mg Q12 NELY Administration - Patient Studies Lab Studies: Lab Studies 04/23/17 04/23/17 Range/Units 06:22 06:22 WBC 11.5 H (4.8-10.8) K/uL RBC 5.12 (4.40-5.90) Mil/uL Hgb 15.0 (12.0-18.0) g/dL Hct 45.3 (35.0-51.0) % MCV 88.5 (80.0-94.0) fL MCH 29.3 (27.0-31.0) pg MCHC 33.1 (33.0-37.0) g/dL RDW 14.4 (11.5-14.5) % Plt Count 164 (130-400) K/uL MPV 8.5 (7.2-11.7) fL Neut % (Auto) 76.0 H (50.0-75.0) % Lymph % (Auto) 16.9 L (20.0-40.0) % [place] % (Auto) 6.8 (0.0-10.0) % Eos % (Auto) 0.1 (0.0-4.0) % Baso % (Auto) 0.2 (0.0-2.0) % Neut # 8.7 H (1.8-7.0) K/uL Lymph # 1.9 (1.0-4.3) K/uL [place] # 0.8 (0.0-0.8) K/uL Eos # 0.0 (0.0-0.7) K/uL Baso # 0.0 (0.0-0.2) K/uL Sodium 133 (132-148) mmol/L Potassium 4.1 (3.6-5.2) mmol/L Chloride 101 (98-107) mmol/L Carbon Dioxide 21 L (22-30) mmol/L Anion Gap 15 (10-20) BUN 20 (9-20) mg/dL Creatinine 1.0 (0.8-1.5) MG/DL Est GFR ( Amer) > 60 Est GFR (Non-Af Amer) > 60 Random Glucose 107 (75-110) mg/dL Calcium 8.2 L (8.6-10.4) mg/dl Phosphorus 3.3 (2.5-4.5) mg/dL Magnesium 2.2 (1.6-2.3) mg/dL Total Bilirubin 2.9 H (0.2-1.3) mg/dL AST 30 (17-59) U/L ALT 58 (21-72) U/L Alkaline Phosphatase 60 (38-126) U/L Total Protein 6.1 L (6.3-8.3) g/dL Albumin 3.4 L (3.5-5.0) g/dL Globulin 2.7 (2.2-3.9) gm/dL Albumin/Globulin Ratio 1.3 (1.0-2.1) Laboratory Results - last 24 hr 04/23/17 04/23/17 06:22 06:22 WBC 11.5 H RBC 5.12 Hgb 15.0 Hct 45.3 MCV 88.5 MCH 29.3 MCHC 33.1 RDW 14.4 Plt Count 164 MPV 8.5 Neut % (Auto) 76.0 H Lymph % (Auto) 16.9 L [place] % (Auto) 6.8 Eos % (Auto) 0.1 Baso % (Auto) 0.2 Neut # 8.7 H Lymph # 1.9 [place] # 0.8 Eos # 0.0 Baso # 0.0 Sodium 133 Potassium 4.1 Chloride 101 Carbon Dioxide 21 L Anion Gap 15 BUN 20 Creatinine 1.0 Est GFR ( Amer) > 60 Est GFR (Non-Af Amer) > 60 Random Glucose 107 Calcium 8.2 L Phosphorus 3.3 Magnesium 2.2 Total Bilirubin 2.9 H AST 30 ALT 58 Alkaline Phosphatase 60 Total Protein 6.1 L Albumin 3.4 L Globulin 2.7 Albumin/Globulin Ratio 1.3 Critical Care Progress Note - Nutrition Nutrition: Nutrition Category Date Time Status Heart Healthy Diet [DIET] Diets 04/21/17 Dinner Active Attending/Attestation - Attestation I have personally seen and examined this patient.: Yes I have fully participated in the care of the patient.: Yes I have reviewed all pertinent clinical information: Yes Notes (Text): 04/23/17 19:33 patient seen and examined in the intensive care unit. Case discussed with house staff in the morning rounds Off Cardizem drip started on p.o. amiodarone Possible LEONA on Wednesday
[2017-04-23] MEDS: Pantoprazole 40 mg EC Tab PO SCH (09:38)
[2017-04-23] MEDS: Enoxaparin 80 mg Syringe SC SCH ×2 (10:00→21:19)
--- NOTE | 2017-04-23 11:35 | CP.PCM.PN ---
Subjective - Date & Time of Evaluation Date of Evaluation: 04/23/17 Time of Evaluation: 11:20 - Subjective Subjective: clinically same Objective - Vital Signs/Intake and Output Vital Signs (last 24 hours): Temp Pulse Resp BP Pulse Ox 98 F 70 15 108/64 96 04/23/17 04:00 04/23/17 07:39 04/23/17 07:39 04/23/17 09:40 04/23/17 07:39 Intake and Output: 04/23/17 04/23/17 06:59 18:59 Intake Total 450.2 50 Output Total 400 Balance 50.2 50 - Medications Medications: Current Medications Amiodarone HCl (Cordarone) 200 mg PO BID [facility] Last Admin: 04/23/17 09:39 Dose: 200 mg Aspirin (Ecotrin) 81 mg PO DAILY [facility] Last Admin: 04/23/17 09:39 Dose: 81 mg Clopidogrel Bisulfate (Plavix) 75 mg PO DAILY [facility] [place] Last Admin: 04/23/17 09:38 Dose: 75 mg Diltiazem HCl (Cardizem) 60 mg PO Q6 NELY Last Admin: 04/23/17 06:22 Dose: 60 mg Docusate Sodium (Colace) 100 mg PO BID [facility] [place] Last Admin: 04/23/17 09:39 Dose: 100 mg Enoxaparin Sodium (Lovenox) 80 mg SC Q12 [facility] [place] Last Admin: 04/22/17 21:21 Dose: 80 mg Losartan Potassium (Cozaar) 25 mg PO DAILY [facility] [place] Last Admin: 04/23/17 09:39 Dose: 25 mg Metoprolol Tartrate (Lopressor) 25 mg PO DAILY [facility] [place] Last Admin: 04/23/17 09:40 Dose: 25 mg Pantoprazole Sodium (Protonix Ec Tab) 40 mg PO DAILY [facility] [place] Last Admin: 04/23/17 09:38 Dose: 40 mg Rosuvastatin Calcium (Crestor) 5 mg PO HS [facility] [place] Last Admin: 04/22/17 21:21 Dose: 5 mg Tramadol HCl (Ultram) 50 mg PO Q12 [facility] Last Admin: 04/23/17 09:38 Dose: 50 mg - Labs Labs: 04/23/17 06:22 04/23/17 06:22 PT 14.6 SECONDS (9.7-12.2) H 04/20/17 07:02 INR 1.3 04/20/17 07:02 APTT 28 SECONDS (21-34) 04/18/17 11:24 - Constitutional Appears: Well - Head Exam Head Exam: ATRAUMATIC, NORMAL INSPECTION, NORMOCEPHALIC - Eye Exam Eye Exam: EOMI, Normal appearance, PERRL Pupil Exam: NORMAL ACCOMODATION, PERRL - ENT Exam ENT Exam: Mucous Membranes Moist, Normal Exam - Neck Exam Neck Exam: Full ROM, Normal Inspection. absent: Lymphadenopathy - Respiratory Exam Respiratory Exam: Decreased Breath Sounds - Cardiovascular Exam Cardiovascular Exam: REGULAR RHYTHM, +S1, +S2 - GI/Abdominal Exam GI & Abdominal Exam: Soft, Diminished Bowel Sounds - Rectal Exam Rectal Exam: Deferred
--- NOTE | 2017-04-23 12:45 | CP.PCM.PN ---
Subjective - Date & Time of Evaluation Date of Evaluation: 04/23/17 Time of Evaluation: 12:42 - Subjective Subjective: Progress Note for Dr. Dawkins Pt seen and examined at bedside. Pt doing well overnight with acute events. Pt with HR in the 60's, which is improved from prior day. Denies CP, SOB, N/V/D. Objective - Vital Signs/Intake and Output Vital Signs (last 24 hours): Temp Pulse Resp BP Pulse Ox 98.1 F 58 L 16 107/72 96 04/23/17 12:00 04/23/17 12:00 04/23/17 12:00 04/23/17 12:00 04/23/17 12:00 Intake and Output: 04/23/17 04/23/17 06:59 18:59 Intake Total 450.2 470 Output Total 400 400 Balance 50.2 70 - Medications Medications: Current Medications Amiodarone HCl (Cordarone) 200 mg PO BID [facility] Last Admin: 04/23/17 09:39 Dose: 200 mg Aspirin (Ecotrin) 81 mg PO DAILY [facility] Last Admin: 04/23/17 09:39 Dose: 81 mg Clopidogrel Bisulfate (Plavix) 75 mg PO DAILY [facility] Last Admin: 04/23/17 09:38 Dose: 75 mg Diltiazem HCl (Cardizem) 60 mg PO Q6 [facility] Last Admin: 04/23/17 11:48 Dose: 60 mg Docusate Sodium (Colace) 100 mg PO BID [facility] Last Admin: 04/23/17 09:39 Dose: 100 mg Enoxaparin Sodium (Lovenox) 80 mg SC Q12 [facility] Last Admin: 04/23/17 10:00 Dose: 80 mg Losartan Potassium (Cozaar) 25 mg PO DAILY [facility] Last Admin: 04/23/17 09:39 Dose: 25 mg Metoprolol Tartrate (Lopressor) 25 mg PO DAILY [facility] Last Admin: 04/23/17 09:40 Dose: 25 mg Pantoprazole Sodium (Protonix Ec Tab) 40 mg PO DAILY [facility] Last Admin: 04/23/17 09:38 Dose: 40 mg Rosuvastatin Calcium (Crestor) 5 mg PO HS [facility] Last Admin: 04/22/17 21:21 Dose: 5 mg Tramadol HCl (Ultram) 50 mg PO Q12 [facility] Last Admin: 04/23/17 09:38 Dose: 50 mg - Labs Labs: 04/23/17 06:22 04/23/17 06:22 PT 14.6 SECONDS (9.7-12.2) H 04/20/17 07:02 INR 1.3 04/20/17 07:02 APTT 28 SECONDS (21-34) 04/18/17 11:24 - Constitutional Appears: Well, No Acute Distress - Head Exam Head Exam: ATRAUMATIC, NORMAL INSPECTION, NORMOCEPHALIC - Respiratory Exam Respiratory Exam: Clear to Ausculation Bilateral, NORMAL BREATHING PATTERN - Cardiovascular Exam Cardiovascular Exam: RRR, +S1, +S2 - GI/Abdominal Exam GI & Abdominal Exam: Soft, Normal Bowel Sounds. absent: Tenderness - Extremities Exam Extremities Exam: absent: Calf Tenderness, Pedal Edema - Neurological Exam Neurological Exam: Alert, Awake, Oriented x3 - Skin Skin Exam: Intact, Normal Color, Warm Assessment and Plan (1) Chest pain Assessment & Plan: Successful stent placed in RCA yesterday Continue ASA and plavix Continue current medical management Status: Acute
[2017-04-23] MEDS ORDERED: POLYETHYLENE GLYCOL 3350 17 GM/Dose PACKET PO ONE (14:06)
--- NOTE | 2017-04-23 23:19 | CP.PCM.PN ---
Subjective - Date & Time of Evaluation Date of Evaluation: 04/23/17 Time of Evaluation: 17:30 - Subjective Subjective: Patient seen and evaluated Now in NSR Denies chest pain and dyspnea Consider discharge patient tomorrow with ASA, Plavix, Statins and B Blockers F/U with Dr. Muhammad in 1 week And my office in 1 month for possible PCI of L cx Objective - Vital Signs/Intake and Output Vital Signs (last 24 hours): Temp Pulse Resp BP Pulse Ox 98.5 F 68 16 119/46 L 95 04/23/17 20:00 04/23/17 22:00 04/23/17 22:00 04/23/17 22:00 04/23/17 22:00 Intake and Output: 04/23/17 04/24/17 18:59 06:59 Intake Total 950 548 Output Total 1175 650 Balance -225 -102 - Medications Medications: Current Medications Amiodarone HCl (Cordarone) 200 mg PO BID [facility] Last Admin: 04/23/17 19:15 Dose: Not Given Aspirin (Ecotrin) 81 mg PO DAILY [facility] Last Admin: 04/23/17 09:39 Dose: 81 mg Clopidogrel Bisulfate (Plavix) 75 mg PO DAILY [facility] Last Admin: 04/23/17 09:38 Dose: 75 mg Diltiazem HCl (Cardizem) 60 mg PO Q6 [facility] Last Admin: 04/23/17 17:37 Dose: Not Given Docusate Sodium (Colace) 100 mg PO BID [facility] Last Admin: 04/23/17 17:36 Dose: 100 mg Enoxaparin Sodium (Lovenox) 80 mg SC Q12 [facility] Last Admin: 04/23/17 21:19 Dose: 80 mg Losartan Potassium (Cozaar) 25 mg PO DAILY [facility] Last Admin: 04/23/17 09:39 Dose: 25 mg Metoprolol Tartrate (Lopressor) 25 mg PO DAILY [facility] Last Admin: 04/23/17 09:40 Dose: 25 mg Pantoprazole Sodium (Protonix Ec Tab) 40 mg PO DAILY [facility] Last Admin: 04/23/17 09:38 Dose: 40 mg Rosuvastatin Calcium (Crestor) 5 mg PO HS [facility] Last Admin: 04/23/17 21:17 Dose: 5 mg Tramadol HCl (Ultram) 50 mg PO Q12 [facility] Last Admin: 04/23/17 21:17 Dose: 50 mg - Labs Labs: 04/23/17 06:22 04/23/17 06:22 PT 14.6 SECONDS (9.7-12.2) H 04/20/17 07:02 INR 1.3 04/20/17 07:02 APTT 28 SECONDS (21-34) 04/18/17 11:24
[2017-04-24 05:37] VITALS: RESP 16
[2017-04-24 06:58] LABS: BASO % 0.3 % (0.0-2.0); EOS % 0.2 % (0.0-4.0); LYMPH # 1.9 K/uL (1.0-4.3); LYMPH % 15.8 % (20.0-40.0); MEAN CELL VOLUME 88.1 fL (80.0-94.0); MEAN CORPUSCULAR HEMOGLOBIN 29.3 pg (27.0-31.0); MEAN CORPUSCULAR HGB CONC 33.2 g/dL (33.0-37.0); MEAN PLATELET VOLUME 8.3 fL (7.2-11.7); MONO # 0.8 K/uL (0.0-0.8); MONO % 6.5 % (0.0-10.0); NEUT # 9.2 K/uL (1.8-7.0); NEUT % 77.2 % (50.0-75.0); RBC 4.79 Mil/uL (4.40-5.90); RED CELL DISTRIBUTION WIDTH 14.5 % (11.5-14.5); WHITE BLOOD COUNT 11.9 K/uL (4.8-10.8)
--- NOTE | 2017-04-24 07:00 | CP.PCM.PN ---
Subjective - Date & Time of Evaluation Date of Evaluation: 04/24/17 Time of Evaluation: 07:00 Objective - Vital Signs/Intake and Output Vital Signs (last 24 hours): Temp Pulse Resp BP Pulse Ox 98.3 F 64 16 130/82 95 04/24/17 04:00 04/24/17 05:00 04/24/17 05:00 04/24/17 05:00 04/24/17 05:00 Intake and Output: 04/24/17 04/24/17 06:59 18:59 Intake Total 648 Output Total 1200 Balance -552 - Medications Medications: Current Medications Amiodarone HCl (Cordarone) 200 mg PO BID [facility] Last Admin: 04/23/17 19:15 Dose: Not Given Aspirin (Ecotrin) 81 mg PO DAILY [facility] Last Admin: 04/23/17 09:39 Dose: 81 mg Clopidogrel Bisulfate (Plavix) 75 mg PO DAILY [facility] Last Admin: 04/23/17 09:38 Dose: 75 mg Diltiazem HCl (Cardizem) 60 mg PO Q6 [facility] Last Admin: 04/24/17 06:51 Dose: 60 mg Docusate Sodium (Colace) 100 mg PO BID [facility] Last Admin: 04/23/17 17:36 Dose: 100 mg Enoxaparin Sodium (Lovenox) 80 mg SC Q12 [facility] Last Admin: 04/23/17 21:19 Dose: 80 mg Losartan Potassium (Cozaar) 25 mg PO DAILY [facility] Last Admin: 04/23/17 09:39 Dose: 25 mg Metoprolol Tartrate (Lopressor) 25 mg PO DAILY [facility] Last Admin: 04/23/17 09:40 Dose: 25 mg Pantoprazole Sodium (Protonix Ec Tab) 40 mg PO DAILY [facility] Last Admin: 04/23/17 09:38 Dose: 40 mg Rosuvastatin Calcium (Crestor) 5 mg PO HS [facility] Last Admin: 04/23/17 21:17 Dose: 5 mg Tramadol HCl (Ultram) 50 mg PO Q12 [facility] Last Admin: 04/23/17 21:17 Dose: 50 mg - Labs Labs: 04/23/17 06:22 04/23/17 06:22 PT 14.6 SECONDS (9.7-12.2) H 04/20/17 07:02 INR 1.3 04/20/17 07:02 APTT 28 SECONDS (21-34) 04/18/17 11:24
[2017-04-24 07:05] VITALS: PULSE 66; O2SAT 96
[2017-04-24 07:11] LABS: ALBUMIN 3.2 g/dL (3.5-5.0)
[2017-04-24 07:14] LABS: ALB/GLOB RATIO 1.1 (1.0-2.1); AST/SGOT 25 U/L (17-59); BLOOD UREA NITROGEN 19 mg/dL (9-20); GFR AFRICAN-AMERICAN > 60; GFR NON-AFRICAN AMERICAN > 60
[2017-04-24 07:15] LABS: ALT/SGPT 62 U/L (21-72); CALCIUM 8.2 mg/dl (8.6-10.4); MAGNESIUM 2.1 mg/dL (1.6-2.3)
[2017-04-24] MEDS: Pantoprazole 40 mg EC Tab PO SCH (09:33)
[2017-04-24] MEDS: Enoxaparin 80 mg Syringe SC SCH (09:35)
[2017-04-24 09:38] VITALS: BP 126/71
[2017-04-24 10:47] VITALS: TEMP 97.5
--- NOTE | 2017-04-24 21:07 | CP.PCM.PN ---
Subjective - Date & Time of Evaluation Date of Evaluation: 04/24/17 Objective - Vital Signs/Intake and Output Vital Signs (last 24 hours): Temp Pulse Resp BP Pulse Ox 97.5 F L 66 16 126/71 96 04/24/17 10:00 04/24/17 06:00 04/24/17 10:00 04/24/17 09:33 04/24/17 10:00 Intake and Output: 04/24/17 04/25/17 18:59 06:59 Intake Total 350 Output Total 450 Balance -100 - Medications Medications: Current Medications Amiodarone HCl (Cordarone) 200 mg PO BID [facility] Last Admin: 04/24/17 09:32 Dose: 200 mg Aspirin (Ecotrin) 81 mg PO DAILY [facility] Last Admin: 04/24/17 09:32 Dose: 81 mg Clopidogrel Bisulfate (Plavix) 75 mg PO DAILY [facility] Last Admin: 04/24/17 09:33 Dose: 75 mg Diltiazem HCl (Cardizem) 60 mg PO Q6 [facility] Last Admin: 04/24/17 12:56 Dose: Not Given Docusate Sodium (Colace) 100 mg PO BID [facility] Last Admin: 04/24/17 09:32 Dose: 100 mg Enoxaparin Sodium (Lovenox) 80 mg SC Q12 [facility] Last Admin: 04/24/17 09:35 Dose: 80 mg Losartan Potassium (Cozaar) 25 mg PO DAILY [facility] Last Admin: 04/24/17 09:32 Dose: 25 mg Metoprolol Tartrate (Lopressor) 25 mg PO DAILY [facility] Last Admin: 04/24/17 09:33 Dose: 25 mg Pantoprazole Sodium (Protonix Ec Tab) 40 mg PO DAILY [facility] Last Admin: 04/24/17 09:33 Dose: 40 mg Rosuvastatin Calcium (Crestor) 5 mg PO HS [facility] Last Admin: 04/23/17 21:17 Dose: 5 mg Tramadol HCl (Ultram) 50 mg PO Q12 [facility] Last Admin: 04/24/17 09:33 Dose: 50 mg - Labs Labs: 04/24/17 06:46 04/24/17 06:46 PT 14.6 SECONDS (9.7-12.2) H 04/20/17 07:02 INR 1.3 04/20/17 07:02 APTT 28 SECONDS (21-34) 04/18/17 11:24
--- NOTE | 2017-05-10 13:31 | CARD ---
APPROVED REPORT EKG Measurement Heart [id number] <Conclusion> Atrial fibrillation with rapid ventricular response Inferior infarct, age undetermined Abnormal ECG
== END 2017-04-24 18:20 | disposition home or self-care (01) | DRG 287 ==
LOC: C.ER 10:45 → C.9E 13:16 → C.6T 14:01 → C.9I 04-20 14:13
PROVIDERS: ADMIT Internal Medicine Nephrology; ATTEND Internal Medicine Nephrology
PROC: B201YZZ Plain Radiography of Multiple Coronary Arteries using Other Contrast (ICD-10-PCS; 2017-04-20)
PROC: 4A023N7 Measurement of Cardiac Sampling and Pressure, Left Heart, Percutaneous Approach (ICD-10-PCS; principal; 2017-04-20 11:00)
DX: I48.91 Unspecified atrial fibrillation (principal); I25.82 Chronic total occlusion of coronary artery; I10 Essential (primary) hypertension; I25.2 Old myocardial infarction; G47.30 Sleep apnea, unspecified; K21.9 Gastro-esophageal reflux disease without esophagitis; M54.9 Dorsalgia, unspecified; G89.29 Other chronic pain; E78.00 Pure hypercholesterolemia, unspecified; I25.119 Atherosclerotic heart disease of native coronary artery with unspecified angina pectoris; E78.5 Hyperlipidemia, unspecified

== ENCOUNTER 2017-07-03 08:44 | Emergency (ER) | payer OTHER, MEDICARE ==
[2017-07-03 08:45] VITALS: BMI 34.4
[2017-07-03 09:02] VITALS: RESP 20; O2SAT 99
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
[2017-07-03 09:39] LABS: BASO # 0.1 K/uL (0.0-0.2); BASO % 2.5 % (0.0-2.0); EOS # 0.2 K/uL (0.0-0.7); HEMATOCRIT 43.2 % (35.0-51.0); LYMPH # 1.3 K/uL (1.0-4.3); LYMPH % 28.5 % (20.0-40.0); MEAN CELL VOLUME 88.8 fL (80.0-94.0); MEAN CORPUSCULAR HEMOGLOBIN 30.2 pg (27.0-31.0); MEAN PLATELET VOLUME 8.3 fL (7.2-11.7); MONO # 0.3 K/uL (0.0-0.8); MONO % 7.8 % (0.0-10.0); NRBC % 0.1 % (0.0-2.0); RED CELL DISTRIBUTION WIDTH 14.8 % (11.5-14.5); WHITE BLOOD COUNT 4.4 K/uL (4.8-10.8)
[2017-07-03 09:45] LABS: CHLORIDE 104 mmol/L (98-107)
[2017-07-03 09:46] LABS: POTASSIUM 3.8 mmol/L (3.6-5.2); SODIUM 141 mmol/L (132-148)
[2017-07-03 09:48] LABS: INR 1.2
[2017-07-03 09:49] LABS: ALB/GLOB RATIO 1.6 (1.0-2.1); ALKALINE PHOSPHATASE 69 U/L (38-126); ALT/SGPT 43 U/L (21-72); AST/SGOT 24 U/L (17-59); BLOOD UREA NITROGEN 10 mg/dL (9-20); CALCIUM 9.2 mg/dl (8.6-10.4); CARBON DIOXIDE 24 mmol/L (22-30); GFR AFRICAN-AMERICAN > 60; GLUCOSE,RANDOM 95 mg/dL (75-110); TOTAL PROTEIN 7.5 g/dL (6.3-8.3)
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
[2017-07-03 13:41] VITALS: BP 122/66; PULSE 62; TEMP 98.3
--- NOTE | 2017-07-06 17:30 | CARD ---
APPROVED REPORT EKG Measurement Heart [id number] [place] 160P29 [id number] <Conclusion> Normal sinus rhythm Normal ECG
== END 2017-07-03 13:49 | disposition home or self-care (01) ==
LOC: C.ER 08:44
DX: S16.1XXA Strain of muscle, fascia and tendon at neck level, initial encounter (principal); S00.93XA Contusion of unspecified part of head, initial encounter; S80.02XA Contusion of left knee, initial encounter; S20.219A Contusion of unspecified front wall of thorax, initial encounter; V89.2XXA Person injured in unspecified motor-vehicle accident, traffic, initial encounter
CPT/HCPCS: 70450; 71010; 72070; 72100; 72125; 73562; 80053; 84484; 85025; 85610; 85730; 93005; 96372; 99285; J1885

== ENCOUNTER 2018-03-17 14:03 | Emergency (ER) | payer MEDICARE, OTHER ==
[2018-03-17 14:03] VITALS: BMI 34.4
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
[2018-03-17] MEDS ORDERED: Morphine 4 MG/ML VIAL ONE ×2 (14:40→16:51)
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
[2018-03-17 17:11] VITALS: BP 132/76; PULSE 64; RESP 18; TEMP 98.8
[2018-03-17 17:29] VITALS: O2SAT 99
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
--- NOTE | 2018-03-19 02:53 | CARD ---
APPROVED REPORT EKG Measurement Heart [id number] [place] 176P18 [id number] <Conclusion> Sinus bradycardia Incomplete right bundle branch block Abnormal ECG
== END 2018-03-17 18:09 | disposition home or self-care (01) ==
LOC: C.ER 14:03
DX: S62.114A Nondisplaced fracture of triquetrum [cuneiform] bone, right wrist, initial encounter for closed fracture (principal); W19.XXXA Unspecified fall, initial encounter; I10 Essential (primary) hypertension; E78.00 Pure hypercholesterolemia, unspecified; I25.10 Atherosclerotic heart disease of native coronary artery without angina pectoris
CPT/HCPCS: 73110; 73200; 93005; 96372; 96374; 99285; J2270